=== PATIENT | male | born 1945 | race Caucasian/White ===

== ENCOUNTER 2018-10-17 16:43 | Inpatient (IN) | payer MEDICARE, MEDICAID ==
[2018-10-17 18:45] LABS: CKMB 3.6 ng/mL (0-6.6)
[2018-10-17] MEDS ORDERED: Amiodarone 150 MG/3 ML VIAL ONE (18:57)
[2018-10-17] MEDS ORDERED: hydrALAZINE 20 MG/ML VIAL SLOW IVP PRN (19:37)
[2018-10-17] MEDS ORDERED: [UNRECOGNIZED DRUG - REMARK] FS PRN (20:25)
--- NOTE | 2018-10-17 20:40 | PDOC.FPRHP ---
- History of Present Illness Chief Complaint: syncope History of Present Illness: 72 y/o M, with PMHx of HTN, not on any medications and not under the care of a physician, presents to the ED via EMS transfer from [place]. Pt was shopping at [employer] when he states the next thing he remembered was being lifted up by bystanders after LOC. Pt felt normal before the syncopal event. He denied any CP, SOB, dizziness, Light headedness, or nausea. He denies any recent illness. Pt hit his head when he fell from ground level on syncopal event. Pt had a laceration over left parietal scalp. Pt states that upon awakening he felt "fine." EMS was called, Pt taken to [place] ER and found to have elevated Trops of 0.154--> 0.130 and small intracranial cranial hemorrhage in the L-parietal lobe. Received concha on scalp. CPK: 168, Cr 1.70, K 3.3. EMS reports runs of V-tach in between transfer from [place] to [facility]. Cardiology consulted and started Amiodarone. Neurology consulted, non-operative treatment at this time. - Allergies/Adverse Reactions Allergies Allergy/AdvReac Type Severity Reaction Status Date / Time No Known Allergies Allergy Verified 10/17/18 22:57 - Home Medications Medication Instructions Recorded Confirmed Type No Known 10/17/18 10/17/18 History - History PMHx: HTN, not on any medications or under the care of PCP PSHx: Right eye surgery FHx: no known medical problems Social: lives "off grid," admits to drinking one beer nightly, but told [place] ER he drank 5 beer nightly. Smoked cigars in the past, denies use now. Denies drug use. - Review of Systems ROS unobtainable: due to mental status (Pt alert and oriented, but has tangential thoughts. Redirectable upon questioning. He does not admit to anything but syncope.) General: denies: fever/chills, fatigue Eyes: denies: eye pain ENT: denies: nasal congestion, rhinorrhea Respiratory: denies: cough, congestion, shortness of breath Cardiovascular: denies: chest pain, palpitation, edema Gastrointestinal: denies: nausea, vomiting, diarrhea, constipation, abdominal pain, GI bleeding Genitourinary: denies: incontinence, dysuria, polyuria, discharge Skin: denies: rashes, lesions Musculoskeletal: denies: pain, tenderness Neurological: reports: syncope. denies: numbness, seizure, weakness - Vital signs BP: 161/94 HR: 96 RR: 16 Tmax: 98.6 F Pox: 96% on RA Wt: 74.616 kg - Physical Exam Constitutional: NAD, awake, alert and oriented -Constitutional: poor hygiene HEENT: PERRLA (of left eye. Right eye s/p surgical changes.), no scleral icterus , grossly normal vision (of left eye.), grossly normal hearing, other (dry mucus membranes) -HEENT: poor dentition, multiple caries and missing teeth. Neck: supple, FROM, trachea midline, no LAD, no JVD Chest: no-tender to palpation, no lesions Heart: RRR, normal S1/S2, no murmurs/rubs/gallops, pulses present, no edema Lungs: CTAB, no respiratory distress, good air movement, no rales/rhonchi, no wheezing, no retractions Abdomen: soft, non-tender, bowel sounds present, no masses/distention, no hernias Musculoskeletal: normal structure, normal tone, ROM grossly normal Neurological: no focal deficit, CN II-XII intact, normal sensation, DTRs 2+, other (intact [id number]-hk-[id number], and vrzopz-im-gmpr bilaterally. No clonus or asterixis.) Skin: no jaundice, other (increased skin tenting.) Heme/Lymphatic: no purpura, no petechia Psychiatric: intact recent and remote memory, other (tangential toughts. Inappropriate laughing. Alert and oriented to person, place, time and situation. ) FMR H&P: Results - Labs Lab results: CK-MB (CK-2) 3.6 ng/mL (0-6.6) 10/17/18 17:55 Trops: 0.154--> 0.130 CPK: 168 - EKG Interpretation EKG: Rate 95 bpm, Sinus rhythm QRS 132 ms, ST depressions in aVL, T wave inversion in V3-V6. - Radiology Interpretation CT scan - head Status: report reviewed by me (L-parietal intracranial hemorrhage) FMR H&P: A/P - Problem List (1) Syncope and collapse Current Visit: Yes Status: Acute Code(s): R55 - SYNCOPE AND COLLAPSE (2) Elevated troponin Current Visit: Yes Status: Acute Code(s): R74.8 - ABNORMAL LEVELS OF OTHER SERUM ENZYMES (3) Acute kidney injury Current Visit: Yes Status: Acute Code(s): N17.9 - ACUTE KIDNEY FAILURE, UNSPECIFIED (4) Intracranial hemorrhage following injury Current Visit: Yes Status: Acute Code(s): S06.309A - UNSP FOCAL TBI W LOC OF UNSP DURATION, INIT Qualifiers: Loss of consciousness presence/duration: with LOC of 30 min or less (5) Fall from ground level Current Visit: Yes Status: Acute Code(s): W18.30XA - FALL ON SAME LEVEL, UNSPECIFIED, INITIAL ENCOUNTER (6) Arrhythmia Current Visit: Yes Status: Acute Code(s): I49.9 - CARDIAC ARRHYTHMIA, UNSPECIFIED Qualifiers: Arrhythmia type: ventricular tachycardia Qualified Code(s): I47.2 - Ventricular tachycardia - Plan 72 y/o M, admitted to Stroke inpatient for evaluation and treatment of a syncopal event, with traumatic small intracranial hemorrhage of left parietal lobe, from fall. 1. Syncope - possible caridiogenic in nature; arrhythmia vs NC - Ordered TT Echo - Cardiology consulted - Pt placed on Amiodarone protocol 2. Intracranial Hemorrhage of L-Parietal lobe - 2/2 GLF from syncope - Re-scan tomorrow - Neurology consulted, non-operative at this time - Keep Systolic BP <150, PRN Hydralazine ordered - NPO until speech eval 3. Elevated Troponins - 0.154--> 0.130 down trending - Will trend, follow Cardiology recommendations - Possible stress test candidate 4. Elevated Creatinine, MICK - continue IV hydration - Cr 0.8 in 2018. 5. Elevated BP - Most likely chronic essential HTN - 160-130's/90-80's - PRN hydralazine to keep sys BP <150 6. Hypokalemia - K 3.3 - Pt given banana bag in ED. 7. Hx of Alcohol Abuse - ASE protocol Diet: NPO until speech evaluation DVT PPX: SCD's Code Status: Full Disposition/LOS: Stable, Admit to stroke unit in patient for at least 2 midnights. FMR H&P: Upper Level - Pertinent history 72 year old male who lives off the grid and has never seen a physician presents with witnessed syncope at [facility]. Patient does not recall events leading up to syncope. He has not had a syncopal event previously. Patient endorses history of heavy drinking, although he states he has not had anything to drink in over a week. Patient not a great historian. His "friend" was present during encounter and states that he has become "more confused" over the last year. 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 - Pertinent findings General: Alert and awake HEENT: MMM, Left pupil reactive to light. 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 Hx of retinal detachment. Card: RRR Resp: CTA-BL, no acute respiratory distress Abdomen: Soft, non-tender to palpation Neuro: Strength 5/5 bilateral upper and lower extremities, sensation intact, pronator drift negative Ext: No edema or cyanosis - Plan Date/Time: 10/17/182039 I, Suzanna Bobby, have evaluated this patient and agree with findings/plan as outlined by record label intern resident. Pertinent changes/additions are listed here. 1. Syncope likely secondary to arrhythmia - No prodromal symptoms - VT noted in route by EMS - Cards consulted; appreciate recs - Echo pending - Patient started on amiodarone gtt per cards - Continuous cardiac monitoring 2. Left parietal ICH 2/2 trauma from syncopal episode - Neuro consulted; appreciate recs - BP parameters per neuro (SBP <150) - Q4H neuro checks - NPO for further obs 3. Elevated BP - Likely chronic HTN - Continue to monitor - BP parameters per neurosurgery 4. MICK - Uncertain of baseline - Will continue to monitor - Maintenance IVF - Previous Cr 0.81 in 2018 5. Indeterminate troponins - Trending down - Likely demand 6. Hypokalemia - s/p banana bag - Will check Mg 7. History of alcohol abuse - JONI protocol initiated - Alcohol level neg - Urine drug screen pending 8. Non-compliance/no previous care - Will check HIV/RPR/Hepatitis panel DVT PPX: SCD's Code Status: Full Dispo: Admit to stroke unit. Anticipate LOS >48 hours. Addendum - Attending - Attending Attestation Date/Time: 10/17/18 [id number] I personally evaluated the patient and discussed the management with Dr. Eugene/ Kanu. I agree with the History, Examination, Assessment and Plan documented above with any addition or exceptions noted below. Patient here after episode of LOC earlier today. Reports sudden onset without prodrome, and no apparent postictal state. At outside ER, found to have small trauma related hemorrhage in L parietal lobe associated with scalp trauma. En route he possibly had some runs of Vtach. Patient has no known medical history. Exam consistent with history. Labs show indeterminate trops, downtrended from previous. He is admitted to the stroke unit for frequent Neuro checks and tele monitoring. Will obtain Echo. Continue Amio drip per cardiology recs. Repeat CT scan in AM to evaluate hemorrhage, and will need fairly strict BP goals overnight. Further mgmt per overnight clinical course.
[2018-10-17 21:19] LABS: Troponin I 0.137 ng/mL (< 0.028)
[2018-10-17 23:02] VITALS: BMI 21.1
[2018-10-17 23:05] LABS: Hemoglobin A1c 5.3 % (4.0-6.0)
[2018-10-17 23:37] LABS: Syphilis Antibody Nonreactive (Nonreactive); Syphilis Antibody Index 0.04 S/CO (<1.00 Non-Reactive)
[2018-10-18 00:13] LABS: HBCM Index 0.05 S/CO (0-0.79); HBSAB Concentration 0.55 mIU/mL; HBSAg Index 0.15 S/CO (0-0.99); HIV (1/2) Antibody/Antigen Non-Reactive (NonReactive); HIV 1/2 INDEX 0.09 S/CO (<1.00); Hep B Surf AB Non-Reactive (NonReactive); Hep B Surf Ag Non-Reactive S/CO (NonReactive); Hep C IgG Ab Non-Reactive (NonReactive); Hep C Index 0.05 S/CO (0-0.79); Hepatitis B Core IgM Abs Non-Reactive (NonReactive)
--- NOTE | 2018-10-18 02:14 | CON ---
DATE OF CONSULTATION: This is Jose Guadalupe Allen PA-C dictating a report for Jay Lan MD. This is a 50-minute initial patient evaluation of which greater than 50% of the exam was spent in counseling and coordinating the patient's care. Remainder of the exam was spent in review of medical records and appropriate imaging studies. CHIEF COMPLAINT: Syncopal episode with tiny left occipital contusion. HISTORY OF PRESENT ILLNESS: Mr. Muñoz is a 72-year-old male who presents to [facility] for the above complaints. The patient states that he does not remember the events surrounding his fall, but just remembers his friends attempting to pick him up. He does have a small laceration on the left. The patient is not on blood thinners. Apparently, he has a history of significant alcohol use. He apparently does not use illicit drugs or tobacco. Some of his history is obtained from his previous girlfriend's son. Review of the patient's head CT shows very tiny left occipital region contusion without any mass effect. There is no extension into the falx and there does not appear to be any type of skull fracture. Review of the patient's cervical spine CT is negative for fracture. The patient denies neck pain at this time. In fact, he denies headache or any type of complaint and is rather not happy that he is here at the hospital. I should note he was a transfer from [place]. He has elevated troponin and given the syncope, Medicine and Cardiology will follow along with the patient. PHYSICAL EXAMINATION: The patient is awake, alert, and appropriate. GCS is 15. He is wearing a well-fitting [place] collar. However, he has no tenderness to palpation of the cervical spine and in fact states that he is most bothered by the collar. He has good strength in the bilateral upper and lower extremities. He is able to correctly identify a pen and define its purpose. I should note that he has an old right eye injury. The patient has a significant atrophy into the right eye and apparently had a retinal detachment as a child and lost his vision on the right eye. He has no blurred vision in the left eye and it is round and reactive. He has very poor dentition and is rather disheveled in appearance, which may signify that he is homeless and this is rather confirmed by his friend. IMPRESSION AND DIAGNOSES: 1. Status post syncopal fall with tiny left occipital lobe contusion. 2. Likely alcohol abuse. PLAN: At this time, our medical colleagues will admit the patient and Cardiology will also help follow along and help workup the patient's syncopal episode. From neurosurgical standpoint, this does not require any type of neurosurgical intervention and we will follow up on a repeat head CT in the morning. I would like his systolic blood pressure to remain less than 150. Head of bed elevated at 30 degrees. We will hold on all blood thinners and anticoagulants. Again, we will follow along, but I have let the patient know that he does not require neurosurgical intervention. This is certainly good news. Please call with any changes in patient's neurologic status. Job ID: [id number]
[2018-10-18] MEDS: Amiodarone 450 MG, Admixture Fee 1 EACH in Dextrose 5% in Water 250 ML IVPB SCH ×2 (02:48→17:42)
[2018-10-18 05:53] LABS: Amphetamine Not Detected (NotDetected); Barbiturates Screen Not Detected (NotDetected); Benzodiazepine Screen Not Detected (NotDetected); Cocaine Metabolite Screen Not Detected (NotDetected); Medtox Control Line Valid? VALID (VALID); Medtox Reader # READER 4; Methadone Not Detected (NotDetected); Methamphetamine Not Detected (NotDetected); Opiate Screen Not Detected (NotDetected); Oxycodone Screen Not Detected (NotDetected); Phencyclidine (PCP) Not Detected (NotDetected); THC/Cannabinoid Screen Not Detected (NotDetected); Tricyclic Screen Not Detected (NotDetected)
--- NOTE | 2018-10-18 05:53 | PDOC.FM ---
- Subjective Subjective: Patient was resting well this morning. He states that he only came in to figure out why he passed out. No new complaints overnight. - Objective MAR Reviewed: Yes Vital Signs & Weight: Vital Signs (12 hours) Temp Pulse Resp BP BP Pulse Ox 10/18/18 04:00 98.3 F 72 16 129/77 96 10/18/18 00:00 98.1 F 73 16 136/86 136/86 96 10/17/18 22:00 98.6 F 86 18 138/100 H 138/100 H 95 Weight Weight 74.616 kg Result Diagrams: 10/18/18 05:12 10/18/18 09:05 Phys Exam - Physical Examination Constitutional: NAD HEENT: moist MMs, sclera anicteric Neck: supple, full ROM Respiratory: no wheezing, no rales, no rhonchi, clear to auscultation bilateral Cardiovascular: RRR, no significant murmur, no rub Gastrointestinal: soft, non-tender, no distention, positive bowel sounds Musculoskeletal: no edema, pulses present Neurological: non-focal, moves all 4 limbs Psychiatric: normal affect, A&O x 3 Skin: no rash, normal turgor Dx/Plan - Plan Plan: 72 y/o M, admitted to Stroke inpatient for evaluation and treatment of a syncopal event, with traumatic small intracranial hemorrhage of left parietal lobe, from fall. Syncope DDX: cardiogenic vs neurogenic vs dehydration Ordered TT Echo EMS noted arrhythmia on transfer Cardiology and Neurology consulted Pt placed on Amiodarone protocol Intracranial Hemorrhage of L-Parietal lobe Fell while in [facility], EMS called. Initial CT shows 8mm focal hemorrhagic contusion in the left parietal lobe. Neurology consulted, non-operative at this time Repeat CT scan this am to monitor for progression. Keep Systolic BP <150, elevate head of bed 30degrees, PRN Hydralazine ordered NPO until speech eval Elevated Troponins 0.154 > 0.130 > 0.137 Will follow Cardiology recommendations Possible stress test candidate Elevated Creatinine, MICK Creatinine of 1.70 Continue IV hydration Cr 0.8 in 2018. Elevated BP Most likely chronic essential HTN 160-130's/90-80's PRN hydralazine to keep sys BP <150 Discussed plan of care with him, including the potential that he be prescribed medications to take when he gets home. He specifically said that he will probably not take any medications when he goes home. Hypokalemia K 2.8, given 40meq K+ IV Hx of Alcohol Abuse ASE protocol Diet: HH DVT PPX: SCD's Code Status: Full Addendum - Attending - Attending Attestation Date/Time: 10/18/18 1100 I personally evaluated the patient and discussed the management with Dr. Pabon. I agree with the History, Examination, Assessment and Plan documented above with any addition or exceptions noted below. Echo is pending. Pt remains on amiodarone drip. Pt had repeat head scan this morning to evaluate bleed. Appreciate neurosurgery recs. Cardiology has been consulted. No new vtach overnight.
[2018-10-18 05:55] LABS: #Lymphocytes 1.6 thou/uL (1.20-3.40); #Monocytes 0.6 thou/uL (0.11-0.59); #Neutrophils 6.1 thou/uL (1.40-6.50); %Basophils 0.4 % (0.0-1.0); %Eosinophils 0.2 % (0.0-10.0); %Lymphocytes 19.2 % (21.0-51.0); %Monocytes 7.7 % (0.0-10.0); %Neutrophils 72.5 % (42.0-75.0); Hemoglobin 13.7 g/dL (14.0-18.0); Mean Corpuscular HGB CONC 33.6 g/dL (32.0-36.0); Mean Corpuscular Hemoglobin 30.2 pg (27.0-31.0); Mean Corpuscular Volume 89.9 fL (78.0-98.0); Mean Platelet Volume 9.2 fL (7.4-10.4); Platelet Count 170 thou/uL (130-400); RBC Distribution Width 12.2 % (11.5-14.5); Red Blood Cell (RBC) Count 4.54 mill/uL (4.70-6.10); White Blood Cell (WBC) Count 8.4 thou/uL (4.8-10.8)
[2018-10-18 06:25] LABS: ALT (SGPT) 9 U/L (8-55); AST (SGOT) 17 U/L (5-34); Albumin 3.6 g/dL (3.4-4.8); Alkaline Phosphatase 66 U/L (40-150); Anion Gap 11 mmol/L (10-20); BUN (Urea Nitrogen) 16 mg/dL (8.4-25.7); Bilirubin, Total 1.5 mg/dL (0.2-1.2); Calc. Creatinine Clearance 72 mL/min (70-130); Calcium 8.4 mg/dL (7.8-10.44); Carbon Dioxide 21 mmol/L (23-31); Cardiac Risk 4.4 (Less than 4.5); Chloride 107 mmol/L (98-107); Cholesterol 162 mg/dl (< 200 Desired); Estimated GFR-MDRD 77; Globulin 2.3 g/dL (2.4-3.5); Glucose 106 mg/dL (83-110); HDL Cholesterol 37 mg/dL (>60 Neg Risk); LDL Cholesterol, Calculated 105 mg/dL; Protein, Total 5.9 g/dL (5.8-8.1); Sodium 136 mmol/L (136-145); Triglycerides 100 mg/dL (Less than 150)
[2018-10-18 06:29] LABS: Potassium 2.8 mmol/L (3.5-5.1)
[2018-10-18] MEDS ORDERED: Potassium Chloride 40 MEQ in Sodium Chloride 0.9% 250 ML 250 ML IVPB SCH ×2 (06:45→13:30)
[2018-10-18] MEDS ORDERED: Potassium Chloride 40 MEQ in Premix Bag 1 BAG IVPB SCH (06:45)
--- NOTE | 2018-10-18 08:58 | CT ---
PRELIMINARY REPORT/[facility]/EMERGENCY AFTER HOURS PROCEDURE: EXAM: CT Head Without Contrast EXAM DATE/TIME: 10/18/2018 4:39 AM CLINICAL HISTORY: 72 years old, male; Injury or trauma; Fall; Follow-up exam; Blunt trauma (contusions or hematomas); P atient HX: F/u PT fell while at [facility]. Lt occipital contusion. PT had to have concha to fix lac on head. TECHNIQUE: Imaging protocol: Computed tomography of the head without contrast. COMPARISON: No relevant prior studies available. FINDINGS: Brain: Apparent small 7 x 5 mm hemorrhagic contusion in the high left medial posterior parietal/occip ital cortex, image #26, series 2. This is a known finding from an available prior report 10/17/2018. Eventual comparison with any available prior exams may be helpful. No significant mass effect or midline shift. No other acute intracranial hemorrhage. There is mild decreased attenuation in the periventricular white matter, likely from microvascular di sease. There are old lacunar infarcts in the right basal ganglia region and thalamus. No definite acute infarct by CT. Ventricles: Ventricle size is normal for age. Bones/joints: No definite acute skull fracture. Sinuses: Included paranasal sinuses are essentially clear. Mastoid air cells: No significant acute finding. 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 Soft tissues: Evidence for soft tissue injury/scalp hematoma/laceration in the high left occipital re gion. Vasculature: Vascular calcifications noted in the internal carotid and vertebral basilar systems. IMPRESSION: 1. Small 7 x 5 mm hemorrhagic contusion in the high left posterior parietal/occipital cortex. 2. No significant mass effect or midline shift. 3. 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 4. Other findings discussed above. Thank you for allowing us to participate in the care of your patient. Dictated and Authenticated by: Guillermo Paris MD 10/18/2018 5:45 AM Central Time ([place] & [place]) FINAL REPORT CT BRAIN WITHOUT CONTRAST: COMPARISON: 10/17/2018 FINDINGS/IMPRESSION: I agree with the findings and impression given in the preliminary report per [facility] physician. Small stable left parietal occipital contusion. POS: [facility]
[2018-10-18] MEDS: Lactated Ringer's 1,000 ML IV SCH ×2 (09:55)
--- NOTE | 2018-10-18 10:12 | PRG ---
DATE OF SERVICE: 10/18/2018 Thirty-minute initial visit note on Donny Muñoz, in which 30 minutes were spent reviewing the imaging record, evaluation, examination, and patient formulation of plan. Greater than 50% time was spent in counseling. Mr. Muñoz is admitted following a fall of unknown etiology, but presumably cardiogenic. Review of head CT demonstrates small left occipital pole hemorrhage, stable on repeat head CT. Cervical spine CT is negative. He is neurologically intact. We will arrange a repeat head CT with us in 1 month followup. Job ID: [id number]
[2018-10-18 12:29] LABS: Troponin I 0.188 ng/mL (< 0.028)
[2018-10-18] MEDS ORDERED: Communication Order-Pharmacy FS SCH (13:30)
--- NOTE | 2018-10-18 15:48 | CON ---
DATE OF CONSULTATION: PRIMARY CARE DOCTOR: Unknown. PRIMARY DONOR FLOOR TECHNICIAN: Lenore Pate MD. REASON FOR CARDIOLOGY CONSULT: Elevated troponin and syncopal episode. HISTORY OF PRESENT ILLNESS: Mr. Muñoz is a 72-year-old male with no significant medical history. He has not seen any doctor since over 40-50 years. 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 He reported that he never had dizziness, lightheadedness, or any cardiac complaints prior to this episode. According to the patient medical record, EMS transferred this patient to [facility]. During the transportation, the patient had a run of v tach while the patient was transferred from [place] to [facility]. He is on amiodarone drip at this moment. His telemetry record has not shown any pauses, arrhythmia, or any lethal heart rhythm. The patient denied any chest pain, heaviness, tightness, dizziness, lightheadedness, or any cardiac complaints. He never followed up with cardiologists. He never had a cardiac workup before. MEDICAL HISTORY: None. SURGICAL HISTORY: Right eye surgery. 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 FAMILY HISTORY: No significant cardiovascular related disease in his family. SOCIAL HISTORY: He lives by himself. According to his medical record, he drinks at least 1 beer at night; however, during the cardiology consult interview, he say he quit drinking heavily about 5 years ago and now he drinks 1-2 beers every other week. He smoked cigar, quit about 5 years ago. He denies any illicit drug abuse. ALLERGIES: NO KNOWN DRUG ALLERGIES. MEDICATIONS: He has not taken any medications. REVIEW OF SYSTEMS: A 12-point review of systems negative unless otherwise mentioned in the HPI. PHYSICAL EXAMINATION: VITAL SIGNS: Blood pressure 136/86, temperature 98.1, pulse is 70s to 80s, respiratory rate 16, and O2 saturation 96% with room air. GENERAL: The patient is alert and oriented x4, in no acute distress. HEAD: Normocephalic. There are lacerations on the occipital site, but no active bleeding at this moment. He has a dressing at this site. EYES: His right eye is blind. On the left side, extraocular muscle movement intact. ENT AND MOUTH: Oral and nasal mucosa moist without lesion. NECK: Supple. Normal range of motion. No JVD. RESPIRATORY: Clear to auscultate bilaterally. No wheezing, rales, or rhonchi noted. CARDIOVASCULAR: Regular rate and rhythm. Normal S1 and S2. There was no S3 or S4. No significant murmur, hives, or thrill noted. 2+ pulses in bilateral upper and lower extremities. No edema in the lower extremities. ABDOMEN: Soft and nontender. No mass to palpate. Bowel sounds are present. SKIN: Warm and dry. No lesion, rash, or erythema noted. MUSCULOSKELETAL: The patient able to move all extremities without any difficulties. The patient denied claudication in the lower extremities. PSYCHIATRIC: The patient's mood is appropriate. NEUROLOGIC: The patient is alert and oriented x4. LABORATORY DATA: WBC 8.4, hemoglobin 13.7, hematocrit 40.8, and platelets 140. Sodium 136; potassium 2.8 and 3.0, the patient received another 40 mEq of potassium supplements this morning; BUN is 16; creatinine 0.95. Hemoglobin 5.3. AST 17 and ALT 9. Magnesium 1.9. CK-MB is 3.6 and troponin is 0.154, 0.130, and 0.137. Total cholesterol 162, triglyceride 100, HDL 37, and LDL 105. Brain CT shows a 7 x 5 mm hemorrhagic left occipital hemorrhage, but repeat CT scan showed no difference from previous result. ASSESSMENT AND PLAN: 1. Status post syncopal episode, possible due to neurologic, cardiovascular, or electrophysiologic cause. The patient had echocardiograms done and results are pending at this moment. If the echocardiogram showing normal, the patient might undergo LINQ placement and possible discharge. According to the patient's telemetry record, he has not have any pauses or arrhythmia. The patient is on amiodarone drip at this moment. However, hopefully, we might change to the beta-ean for preventing any arrhythmia in the future arrhythmia episode. 2. Hypokalemia. The patient's primary care doctor already covered the patient's potassium. 3. EtOH abuse. Strongly recommended the patient start EtOH cessation. Thank you very much for allowing Cardiology Service to participate in the care of this patient. We will follow along the patient's care team and make further recommendations as appropriate. Job ID: [id number]
[2018-10-18 17:57] LABS: Troponin I 0.072 ng/mL (< 0.028)
--- NOTE | 2018-10-18 20:01 | CON ---
DATE OF CONSULTATION: 10/18/2018 INDICATION FOR CONSULTATION: A 72-year-old gentleman, with syncopal episode with a small subdural bleed after the fall. This gentleman had no previous cardiac history that he is aware of. He said he did present to the emergency room several years ago with some chest pain, thought he was having a heart attack, but the workup was unremarkable. He was actually at a [employer] place yesterday when he was looking to see the chambers with some equipment. The next thing, he knew he was being picked up off the floor by some of the coworkers and on the ambulance was noted to have some runs of ventricular tachycardia. He has been placed on IV amiodarone and the arrhythmias have seem to have resolved. He denied any chest pain. He has no significant shortness of breath or other complaints. I did notice in his laboratory data, his potassium was decreased when he arrived it was 2.8, is now 3.0 after being given treatment. He did undergo an echocardiogram also today, which shows a severe decrease in left ventricular systolic function, ejection fraction of 20% to 25% with [id number] aortic valve regurgitation. His cardiac enzymes were also indeterminate, first was 0.13, increased up to 0.188. Hemoglobin was 13.7 and creatinine is 0.95. PAST MEDICAL HISTORY: Please refer the notes dictated by the nurse practitioner. SOCIAL HISTORY: Please refer the notes dictated by the nurse practitioner. FAMILY HISTORY: Please refer the notes dictated by the nurse practitioner. REVIEW OF SYSTEMS: Please refer the notes dictated by the nurse practitioner. 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 Otherwise, he has had no significant complaints on review of systems. He denies any tobacco abuse, but did smoke in the past, but stopped several years ago. Previously, he smoked cigars. He said he stopped drinking beer sometime back, but in the past did drink relatively heavily and also smoked marijuana, but this stopped several years ago. ALLERGIES: NONE. MEDICATIONS: Prior to admission were also none. PHYSICAL EXAMINATION: GENERAL: Reveals a somewhat unkempt elderly gentleman. VITAL SIGNS: Blood pressure is 127/87, heart rate is 74 and regular, respiratory rate 17, and he is afebrile. HEENT: Shows head to be normocephalic. He does have a bandage on the posterior parietal area, where he has some laceration there and hematoma. Carotid pulses are present without bruits. CHEST: Clear to auscultation without rales, rhonchi, or wheezing. CARDIOVASCULAR: Reveals a regular rate and rhythm. He has a 2/3 diastolic murmur in the aortic area, also has soft systolic murmur of the aortic area as well as a soft systolic murmur 2/3 at the apex. ABDOMEN: Soft and nontender. Positive bowel sounds are present. No organomegaly or masses noted. Femoral pulses are present. EXTREMITIES: Show no clubbing, cyanosis, or edema. Pedal pulses are present. Radial pulses are present. NEUROLOGIC: The patient appears to be intact at this time. LABORATORY DATA: His laboratory data as noted above. EKG shows normal sinus rhythm with nonspecific EKG changes. T-wave inversion in the lateral leads which could be compatible with ischemia versus left ventricular hypertrophy. Echocardiogram showed as above the ejection fraction with global hypokinesis of 20% to 25%. IMPRESSION AND PLAN: Cardiomyopathy with global hypokinesis. Ejection fraction 20% to 25% in the patient, who underwent syncopal episode and had episodes of documented nonsustained ventricular tachycardia. At this time, I would suggest the patient to undergo a cardiac catheterization for evaluation of coronary artery status to determine whether or not this may have been ischemic event associated with coronary artery disease. If there is no coronary artery disease noted, then he will need to undergo electrophysiological study to determine whether or not his ventricular tachycardia can be reproduced and that fact he most likely will need to undergo an AICD implant. At the minimum, he will need to undergo a LINQ implant to determine exactly what arrhythmias he may be having. Should he have severe coronary artery disease, he will need to undergo further intervention most likely. As far as his other medical conditions and for his history of tobacco abuse, this will be dealt with by the primary care service. We will be more than happy to continue to follow this patient with you and further recommendations will depend on the results of the cardiac catheterization. Job ID: [id number]
[2018-10-19 05:24] LABS: Anion Gap 10 mmol/L (10-20); BUN (Urea Nitrogen) 15 mg/dL (8.4-25.7); Calc. Creatinine Clearance 81 mL/min (70-130); Calcium 8.3 mg/dL (7.8-10.44); Carbon Dioxide 22 mmol/L (23-31); Chloride 107 mmol/L (98-107); Estimated GFR-MDRD 89; Glucose 100 mg/dL (83-110); Potassium 3.3 mmol/L (3.5-5.1); Sodium 136 mmol/L (136-145)
--- NOTE | 2018-10-19 05:28 | PDOC.FM ---
- Subjective Subjective: Mr. Muñoz was resting comfortably this morning. No new complaints. - Objective MAR Reviewed: Yes Vital Signs & Weight: Vital Signs (12 hours) Temp Pulse Resp BP BP BP Pulse Ox 10/19/18 04:00 97.4 F L 68 18 116/71 96 10/19/18 00:00 98.6 F 79 16 126/88 126/88 95 10/18/18 20:00 99.6 F 84 16 147/107 H 147/107 H 96 Weight Weight 74.616 kg I&O: 10/17/18 10/18/18 10/19/18 06:59 06:59 06:59 Intake Total 1080 Balance 1080 Result Diagrams: 10/18/18 05:12 10/19/18 04:44 Phys Exam - Physical Examination Constitutional: NAD HEENT: moist MMs, sclera anicteric blind right eye Neck: no nodes, supple, full ROM Respiratory: no wheezing, no rales, no rhonchi, clear to auscultation bilateral Cardiovascular: RRR, no significant murmur, no rub Gastrointestinal: soft, non-tender, no distention, positive bowel sounds Musculoskeletal: no edema, pulses present Neurological: non-focal, moves all 4 limbs Psychiatric: normal affect, A&O x 3 Skin: no rash, cap refill <2 seconds Dx/Plan - Plan Plan: 72 y/o M, admitted to Stroke inpatient for evaluation and treatment of a syncopal event, with traumatic small intracranial hemorrhage of left parietal lobe, from fall. Syncope DDX: cardiogenic vs neurogenic vs dehydration EMS noted arrhythmia on transfer Cardiology and Neurosurg consulted Pt placed on Amiodarone protocol Abnormal Echocardiogram Global hypokinesis. EF 20-25%. Dilated LV and LA. Aortic regurgitation (mild-mod ). Cardiology recommends cardiac catheterization, with the potential need for EP study and AICD placement. Patient undergoing cath this am. Hypokalemia K 3.3, will give 40meq PO this am after procedure. Elevated BP, Resolved Elevated Creatinine, MICK Creatinine of 0.84, back to baseline D/tree IV fluids Elevated Troponins, downtrending 0.154 > 0.130 > 0.137 > 0.072 Will follow Cardiology recommendations Intracranial Hemorrhage of L-Parietal lobe Fell while in [facility], EMS called. Initial CT shows 8mm focal hemorrhagic contusion in the left parietal lobe. Neurology consulted, non-operative at this time Repeat CT was reassuring. Neurosurgery recommends repeat scan in 1 month. Hx of Alcohol Abuse ASE protocol Diet: HH DVT PPX: SCD's Code Status: Full Addendum - Attending - Attending Attestation Date/Time: 10/19/18 1231 I personally evaluated the patient and discussed the management with Dr. Pabon. I agree with the History, Examination, Assessment and Plan documented above with any addition or exceptions noted below. The patient has gone for cath this morning. REport is pending. Per staff, he may need cardiac surgery. Will f/u with cardiology recs. Pt has newly diagnosed systolic chf.
[2018-10-19] MEDS ORDERED: Heparin 10,000 UNITS/1 ML VIAL ONE (08:40)
[2018-10-19] MEDS ORDERED: Verapamil 5 MG/2 ML VIAL ONE (08:40)
[2018-10-19] MEDS ORDERED: Nitroglycerin 100MG/250ML BOT 250 ML ONE (08:40)
[2018-10-19] MEDS ORDERED: Lidocaine 1% (PF) 30 ML VIAL ONE (09:07)
[2018-10-19] MEDS: Amiodarone 450 MG, Admixture Fee 1 EACH in Dextrose 5% in Water 250 ML IVPB SCH (10:22)
[2018-10-19] MEDS ORDERED: Sodium Chloride 0.9% 200 ML IV PRN (10:55)
[2018-10-19] MEDS ORDERED: Acetaminophen/Codeine 30-300mg Tablet PO PRN ×2 (10:55)
[2018-10-19] MEDS ORDERED: Nitroglycerin 0.4 MG TAB (25 Tab Bottle) SL PRN (10:55)
[2018-10-19] MEDS ORDERED: Potassium Chloride 20 MEQ TAB PO SCH (12:00)
[2018-10-19] MEDS ORDERED: Iopamidol 370 76% 100 ML VIAL ONE (17:05)
[2018-10-19] MEDS ORDERED: Amiodarone In Dextrose 200 ML IVPB SCH (22:00)
--- NOTE | 2018-10-20 02:14 | CON ---
DATE OF CONSULTATION: 10/19/2018 REASON FOR CONSULTATION: Evaluate patient with severe coronary artery disease and congestive heart failure. HISTORY OF PRESENT ILLNESS: Mr. Muñoz [place] the [employer] [place] when he passed out. He was brought to the emergency department in [place] and found to have ventricular tachycardia and bursts on transport. He was started on amiodarone drip and transported here. Of note, he is found to have on CT of his head a small parietal/occipital bleed. As part of his workup, he underwent echocardiogram revealing ejection fraction of 20% to 25% with no significant valvular disease. He was taken for cardiac catheterization today which shows severe 3-vessel disease. The patient has no previous medical history and has not ever had any cardiac issues. He [facility] [place] and in a house that he says belongs to his girlfriend in [place]. She has provided a place for him to stay on numerous occasions. He does not currently take any medications at home. PAST MEDICAL HISTORY: None. PAST SURGICAL HISTORY: Right eye surgery for detached retina at the [facility]. CURRENT MEDICATIONS: At home, none. ALLERGIES: NONE. SOCIAL HISTORY: He is fairly disheveled appearing. He does not use tobacco. He does drink on a daily basis. REVIEW OF SYSTEMS: 10-point review of systems is performed and negative except as above. PHYSICAL EXAMINATION: GENERAL: This is a disheveled-appearing, thin gentleman, eating dinner with no complaint. VITAL SIGNS: Temperature is 98.6, pulse is 79 and regular, blood pressure is 136/97, height 6 feet 2 inches, weight is 165 pounds, BSA is 1.98. HEENT: Sclerae nonicteric. Pupils equal bilaterally. NECK: Supple without bruit. CHEST: Clear bilaterally. HEART: Rhythm is regular. ABDOMEN: Soft and nontender. EXTREMITIES: No edema. VASCULAR: Palpable carotid, radial, femoral, dorsalis pedis pulses bilaterally. LABORATORY DATA: Of note, his hemoglobin is 13.7, platelet count is 170,000. Creatinine is 0.84, potassium is 3.3. ASSESSMENT AND PLAN: Mr. Muñoz is an unfortunate 72-year-old gentleman, who has had no previous medical care. He presents with congestive heart failure, ejection fraction of 20% to 25% and 3-vessel disease. He has also had some ventricular arrhythmias, which have been controlled with amiodarone. He sustained an intracranial bleed at the time of his fall. He needs to be treated for his congestive heart failure and rhythm disturbance. Revascularization acutely is not in my opinion warranted and we would like to see how he does on some medications for a month or so and see him back in the office and see if we can plan for revascularization at that point. He will also need to be cleared by Dr. Lan for full anticoagulation if we are to undertake coronary bypass grafting. Job ID: [id number]
--- NOTE | 2018-10-20 05:31 | PDOC.FM ---
- Subjective Subjective: Mr. Muñoz was sleeping well this morning. His understanding from the CV surgeon / Lead Care Manager was that he will do medical management for a month and reevaluate his cardiac function. He was curious when he would be going home. - Objective MAR Reviewed: Yes Vital Signs & Weight: Vital Signs (12 hours) Temp Pulse Resp BP BP Pulse Ox 10/20/18 04:00 98.1 F 67 16 124/88 124/88 97 10/20/18 00:00 115/64 10/19/18 23:41 98.1 F 68 16 115/64 97 10/19/18 20:00 98.6 F 78 16 136/90 136/90 98 10/19/18 17:37 79 18 136/97 H 97 Weight Weight 75.251 kg I&O: 10/18/18 10/19/18 10/20/18 06:59 06:59 06:59 Intake Total 2009 320.4 Output Total 900 500 Balance 1110 -179.6 Result Diagrams: 10/18/18 05:12 10/20/18 06:08 Phys Exam - Physical Examination Constitutional: NAD HEENT: moist MMs, sclera anicteric Neck: supple, full ROM Respiratory: no wheezing, no rales, no rhonchi, clear to auscultation bilateral Cardiovascular: RRR, no significant murmur, no rub Gastrointestinal: soft, non-tender, no distention, positive bowel sounds Musculoskeletal: no edema, pulses present Neurological: non-focal, normal sensation, moves all 4 limbs Psychiatric: normal affect, A&O x 3 Skin: no rash, normal turgor Dx/Plan - Plan Plan: 72 y/o M, admitted to Stroke inpatient for evaluation and treatment of a syncopal event, with traumatic small intracranial hemorrhage of left parietal lobe, from fall. Syncope, likely cardiac in origin DDX: cardiogenic vs neurogenic vs dehydration EMS noted arrhythmia on transfer Cardiology and Neurosurg consulted Pt placed on Amiodarone protocol Abnormal Echocardiogram Global hypokinesis. EF 20-25%. Dilated LV and LA. Aortic regurgitation (mild-mod ). Cardiology recommends cardiac catheterization, with the potential need for EP study and AICD placement. Cath (10/18), report pending. Hypokalemia Recheck w/ BMP this morning. Elevated BP, Resolved Elevated Creatinine, MICK, resolved Elevated Troponins, resolved Intracranial Hemorrhage of L-Parietal lobe Repeat CT was reassuring. Neurosurgery recommends repeat scan in 1 month. Hx of Alcohol Abuse ASE protocol Diet: HH DVT PPX: SCD's Code Status: Full Addendum - Attending - Attending Attestation Date/Time: 10/20/181924 I personally evaluated the patient and discussed the management with Dr. Pabon. I agree with the History, Examination, Assessment and Plan documented above with any addition or exceptions noted below. The patient has been seen by cv surgery who recommends medical management in the next month. Will add beta ean and maite inhibitor. F/u with cardiology recs for amiodarone drip. Will need life vest.
[2018-10-20 06:37] LABS: Anion Gap 10 mmol/L (10-20); BUN (Urea Nitrogen) 10 mg/dL (8.4-25.7); Calc. Creatinine Clearance 88 mL/min (70-130); Calcium 8.4 mg/dL (7.8-10.44); Carbon Dioxide 22 mmol/L (23-31); Chloride 107 mmol/L (98-107); Estimated GFR-MDRD Greater than 90; Glucose 101 mg/dL (83-110); Potassium 3.9 mmol/L (3.5-5.1); Sodium 135 mmol/L (136-145)
[2018-10-20] MEDS ORDERED: Amiodarone In Dextrose 200 ML IVPB SCH (09:57)
--- NOTE | 2018-10-20 10:00 | PDOC.CPN ---
- Subjective Date: 10/20/18 Time: 10:10 Interval history: The pt seen and examined. No overnight events. No cardiac complaints. - Objective Allergies/Adverse Reactions: Allergies Allergy/AdvReac Type Severity Reaction Status Date / Time No Known Allergies Allergy Verified 10/17/18 22:57 Visit Medications: Current Medications Acetaminophen/Codeine Phosphate (Tylenol #3) 1 tab PO Q4H PRN PRN Reason: Mild Pain (1-3) Acetaminophen/Codeine Phosphate (Tylenol #3) 2 tab PO Q4H PRN PRN Reason: Moderate Pain (4-6) Amiodarone HCl (Cordarone) 400 mg PO BID ABDIRASHID Amiodarone HCl (Cordarone) 200 mg PO TID ABDIRASHID Amiodarone HCl (Cordarone) 200 mg PO BID ABDIRASHID Amiodarone HCl (Cordarone) 200 mg PO DAILY ABDIRASHID Carvedilol (Coreg) 3.125 mg PO BID-[facility] Hydralazine HCl (Apresoline) 10 mg SLOW IVP Q15MIN PRN PRN Reason: Blood Pressure Amiodarone HCl/Dextrose (Nexterone) 200 mls @ 0 mls/hr IVPB INF ABDIRASHID; Protocol Miscellaneous Information (Communication Order-Pharmacy) 1 each FS PRN PRN PRN Reason: . Nitroglycerin (Nitrostat) 0.4 mg SL Q5MIN PRN PRN Reason: Chest Pain Sodium Chloride (Flush - Normal Saline) 10 ml IVF PRN PRN PRN Reason: Saline Flush Vital Signs & Weight: Vital Signs Temp Pulse Resp BP BP Pulse Ox 10/20/18 07:46 97.9 F 77 16 145/97 H 95 10/20/18 04:00 98.1 F 67 16 124/88 124/88 97 10/20/18 00:00 115/64 10/19/18 23:41 98.1 F 68 16 115/64 97 Weight 165 lb 14.4 oz - Physical Exam HEENT: mucus membranes moist Neck: supple neck Cardiac: regular rate and rhythm, S1/S2 Lungs: clear to auscultation Skin: clear Musculoskeletal: normal range of motion - Labs Result Diagrams: 10/18/18 05:12 10/20/18 06:08 Troponin/CKMB CK-MB (CK-2) 3.6 ng/mL (0-6.6) 10/17/18 17:55 Troponin I 0.072 ng/mL (< 0.028) H 10/18/18 17:20 - Telemetry Sinus rhythms and dysrhythmias: sinus rhythm - Assessment/Plan Assessment/Plan: 1. Severe Diffuse CAD with s/p LHC on 10/19/2018 with 100% occuled in RCA and Lt Cx, distal RCA is filled from Left system, 90% stenosis in LAD; Medical tx only at this time. Re-evaluate in 1 month.; will start ASA 81mg qd, Coreg 3.125mg BID and Lisinopril 2.5mg qd; 2. S/p Cardiac arrhythmia - remains in SR with Amiodarone drip, which will be changed to Amiodarone PO 400mg BID for 2 wks (form 10/20/2018), 200mg TID for 2 wks, 200mg BID for 2 wks, then change to 200mg qd s/p Syncope episode - likely cardiac in origin 3. Ischemic CMY - will d/tree home with LifeVest 4. Chronic Systolic HF - will start Coreg and Lisinopril; may start diuretic if necessary 5. Hx of Alcohol Abuse - ETOH cessation education given to the pt. PADMINI reviewed * Echo on 10/18/2018 with EF 20-25%, mild dilated LA, mild ERA, mild MR, mild- mod AR, and mild TR and MI * s/p LHC on 10/19/2018 with 100% occuled in RCA and Lt Cx, distal RCA is filled from Left system, 90% stenosis in LAD; Medical tx only at this time. Consider entresto. Pt. seen and eval. by me. I agree with the A/P by the BRANCH OFFICE ADMINISTRATOR.See notes from CT surgery. Medical treatment for now.Chest clear. RRR. Pt. likely had V-tach and syncope.
[2018-10-20] MEDS ORDERED: Aspirin 81 mg Enteric Coated Tablet PO SCH (10:15)
[2018-10-20] MEDS ORDERED: Amiodarone 200 MG TAB PO SCH (11:15)
[2018-10-20] MEDS ORDERED: Carvedilol 3.125 MG TAB PO SCH ×2 (11:30→17:00)
[2018-10-20] MEDS ORDERED: Lisinopril 2.5 MG TAB PO SCH (11:30)
[2018-10-20] MEDS: Carvedilol 3.125 MG TAB PO SCH (16:35)
[2018-10-20] MEDS: Amiodarone 200 MG TAB PO SCH (20:27)
[2018-10-20] MEDS ORDERED: Atorvastatin Calcium 40 MG TAB PO SCH (21:00)
--- NOTE | 2018-10-21 05:13 | PDOC.FM ---
- Subjective Subjective: Patient states he slept well. Denies any complaints this morning. He states he has read the info about life vest and wants to be able to obtain one to take home. If discharged he says he has friend "Laura" who can come pick him up and he will be staying in a room at her house. - Objective Vital Signs & Weight: Vital Signs (12 hours) Temp Pulse Resp BP BP Pulse Ox 10/21/18 04:00 112/72 10/21/18 03:56 98.6 F 68 16 112/72 97 10/21/18 00:00 98.5 F 70 16 114/74 114/74 95 10/20/18 20:00 98.1 F 70 16 118/77 118/77 97 Weight Weight 74.888 kg I&O: 10/19/18 10/20/18 10/21/18 06:59 06:59 06:59 Intake Total 2009 320.4 840 Output Total 900 500 750 Balance 1110 -179.6 90 Result Diagrams: 10/18/18 05:12 10/21/18 07:49 Phys Exam - Physical Examination Constitutional: NAD HEENT: PERRLA, moist MMs Neck: no JVD, supple, full ROM Respiratory: no wheezing, no rhonchi, clear to auscultation bilateral Cardiovascular: RRR, no significant murmur Gastrointestinal: soft, non-tender, no distention, positive bowel sounds Musculoskeletal: no edema, pulses present Neurological: normal sensation, moves all 4 limbs Psychiatric: normal affect, A&O x 3 Skin: no rash, normal turgor Dx/Plan (1) Elevated troponin Code(s): R74.8 - ABNORMAL LEVELS OF OTHER SERUM ENZYMES Status: Acute (2) Fall from ground level Code(s): W18.30XA - FALL ON SAME LEVEL, UNSPECIFIED, INITIAL ENCOUNTER Status : Acute (3) Intracranial hemorrhage following injury Code(s): S06.309A - UNSP FOCAL TBI W LOC OF UNSP DURATION, INIT Status: Acute Qualifiers: Loss of consciousness presence/duration: with LOC of 30 min or less (4) Syncope and collapse Code(s): R55 - SYNCOPE AND COLLAPSE Status: Acute - Plan Plan: 72 y/o M, admitted to Stroke inpatient for evaluation and treatment of a syncopal event, with traumatic small intracranial hemorrhage of left parietal lobe, from fall: #Syncope, likely cardiac in origin -DDX: cardiogenic vs neurogenic vs dehydration -EMS noted arrhythmia on transfer -Cardiology and Neurosurg consulted, appreciate recs -Pt placed on Amiodarone protocol--transitioned to PO Amiodarone on 10/20/18 @2100 -Cardio restarted on 10/20/18: ASA 81 mg, Coreg 3.125mg BID, and Lisinopril 2.5 mg #Abnormal Echocardiogram -Global hypokinesis. EF 20-25%. Dilated LV and LA. Aortic regurgitation (mild- mod). -Cardiology recommends cardiac catheterization, with the potential need for EP study and AICD placement. -Cath (10/18), report states high risk CABG vs medical management, Cardio recs state patient will undergo medical mgmt for 1 month then reassess #Hypokalemia, resolved -Recheck w/ BMP this morning #Elevated BP, Resolved #Elevated Creatinine, MICK, resolved #Elevated Troponins, resolved #Intracranial Hemorrhage of L-Parietal lobe -Repeat CT was reassuring. -Neurosurgery recommends repeat CT head in 1 month, f/u with [facility] outpatient in 1 month #Hx of Alcohol Abuse -ASE protocol Diet: HH DVT PPX: SCD's Code Status: Full Dispo: Stable with anticipated discharge after complete 24hrs of PO Amiodarone and Life Vest obtained to take home. Addendum - Attending - Attending Attestation Date/Time: 10/21/18 6565 I personally evaluated the patient and discussed the management with Dr. Marte. I agree with the History, Examination, Assessment and Plan documented above with any addition or exceptions noted below. The patient's heart rate is stable on po amiodarone. He is getting his lifevest today. Will d/c home.
[2018-10-21] MEDS: Amiodarone 200 MG TAB PO SCH (08:22)
[2018-10-21] MEDS: Carvedilol 3.125 MG TAB PO SCH ×2 (08:22→17:32)
[2018-10-21 08:31] LABS: Anion Gap 10 mmol/L (10-20); BUN (Urea Nitrogen) 13 mg/dL (8.4-25.7); Calc. Creatinine Clearance 83 mL/min (70-130); Calcium 8.8 mg/dL (7.8-10.44); Carbon Dioxide 25 mmol/L (23-31); Chloride 106 mmol/L (98-107); Estimated GFR-MDRD Greater than 90; Glucose 101 mg/dL (83-110); Potassium 3.9 mmol/L (3.5-5.1); Sodium 137 mmol/L (136-145)
[2018-10-21] MEDS ORDERED: Lisinopril 2.5 MG TAB PO SCH (09:00)
[2018-10-21 15:39] VITALS: BP 112/69; TEMP 98.1
--- NOTE | 2018-10-24 10:29 | DIS ---
DATE OF ADMISSION: 10/17/2018 DATE OF DISCHARGE: 10/21/2018 RESIDENT: Maty Pabon MD ADMITTING ATTENDING: Jay Moon MD. CONSULT: Cardiology, Dr. Herman. CV Surgery, Dr. Pate. Neurosurgery, Dr. Lan. PROCEDURES: Left heart catheterization. PRIMARY DIAGNOSIS: Syncope. SECONDARY DIAGNOSES: Intracranial hemorrhage of left parietal lobe, elevated troponin, acute kidney injury, hypertension, coronary artery disease, chronic systolic heart failure. DISCHARGE MEDICATIONS: 1. Amiodarone 400 mg b.i.d. for 14 days, then 200 mg t.i.d. for 14 days, then 200 mg b.i.d. for 14 days, then 200 mg daily. 2. Atorvastatin 40 mg. 3. Carvedilol 3.125 mg b.i.d. 4. Lisinopril 5 mg daily. 5. Nitrostat 0.4 mg p.r.n. DISCONTINUED MEDICATIONS: None. HISTORY OF PRESENT ILLNESS: Mr. Muñoz is a 72-year-old male with past medical history of hypertension who does not currently take any medications or see a doctor on a daily basis who presented to the emergency department via EMS after falling in [employer]. He states that he did not remember feeling dizzy or weak before hand, he just woke up on the floor being lifted by bystanders. He denies any chest pain, shortness of breath, dizziness, lightheadedness, or nausea. He denies any acute illnesses. He denies any prior episodes like this. After awakening, he felt fine: however, EMS was called and the patient was taken to [facility], where he was found to have elevated troponin and a small intracranial hemorrhage on CT scan. His scalp was stapled and he was transferred to [place]. Neurology was consulted due to the CT scan and stated that the intracranial hemorrhage was nonoperative at this time, ordered a repeat CT scan which showed stable changes. Cardiology was consulted due to a period of time during transfer via EMS, where he was noted to be in ventricular tachycardia. Once he arrived at [place], he was placed on telemetry and started on amiodarone, had another episode of ventricular tachycardia while on telemetry monitoring. Cardiology recommended getting a heart catheterization and an echo. Echo showed global hypokinesis and ejection fraction of 20% to 25%. The heart catheterization showed 100% occlusion in the right circumflex artery and left circumflex, distal and filled from left system, 90% stenosis in left anterior descending artery. possible surgical intervention follow up with Cardiology. DISPOSITION: Stable. DISCHARGE INSTRUCTIONS: 1. Location: Home. 2. Diet: Heart healthy. 3. Activity: Ad jocelyne. 4. Follow up with him in one month with CV Surgery/Cardiology. Job ID: [id number]
[2018-11-03] MEDS ORDERED: Amiodarone 200 MG TAB PO SCH (09:00)
[2018-11-17] MEDS ORDERED: Amiodarone 200 MG TAB PO SCH (09:00)
[2018-12-01] MEDS ORDERED: Amiodarone 200 MG TAB PO SCH (09:00)
== END 2018-10-21 18:57 | disposition home or self-care (01) | DRG 86 ==
LOC: ERS 16:43 → 2SE 20:09
PROVIDERS: ADMIT Student in an Organized Health Care Education/Training Program; ATTEND Student in an Organized Health Care Education/Training Program
PROC: 4A023N7 Measurement of Cardiac Sampling and Pressure, Left Heart, Percutaneous Approach (ICD-10-PCS; principal; 2018-10-19)
PROC: B2111ZZ Fluoroscopy of Multiple Coronary Arteries using Low Osmolar Contrast (ICD-10-PCS; 2018-10-19)
PROC: B2151ZZ Fluoroscopy of Left Heart using Low Osmolar Contrast (ICD-10-PCS; 2018-10-19)
DX: S06.5X1A Traumatic subdural hemorrhage with loss of consciousness of 30 minutes or less, initial encounter (principal); N17.9 Acute kidney failure, unspecified; I47.2 Ventricular tachycardia; I50.22 Chronic systolic (congestive) heart failure; E87.6 Hypokalemia; F10.10 Alcohol abuse, uncomplicated; I25.10 Atherosclerotic heart disease of native coronary artery without angina pectoris; I25.5 Ischemic cardiomyopathy; I49.9 Cardiac arrhythmia, unspecified; I11.0 Hypertensive heart disease with heart failure; W18.30XA Fall on same level, unspecified, initial encounter; Y93.9 Activity, unspecified
CPT/HCPCS: 36415; 70450; 80048; 80053; 80061; 80306; 82553; 83036; 83735; 84484; 85025; 86705; 86706; 86780; 86803; 87340; 87389; 93306; 93458; 96365; 96376; C1769; J0282; J1644; J2001; J3480; J7050; J7070; Q9967

== ENCOUNTER 2018-11-17 05:56 | Inpatient (IN) | payer MEDICARE, MEDICAID ==
[2018-11-17] MEDS ORDERED: Fentanyl 250 MCG/5 ML VIAL ONE (06:21)
[2018-11-17] MEDS ORDERED: Nitroglycerin 50 MG/250 ML BOT 250 ML ONE (06:21)
[2018-11-17] MEDS ORDERED: Norepinephrine 4 MG/4 ML VIAL ONE (06:21)
[2018-11-17] MEDS ORDERED: Dexamethasone 4 mg/ml Vial ONE (06:29)
[2018-11-17] MEDS ORDERED: Bupivacaine HCl 0.5%/Epinephrine 1:200,000/PF 30 ml Vial ONE (06:29)
[2018-11-17] MEDS ORDERED: Albumin 5% 500 ML ONE (06:29)
[2018-11-17] MEDS ORDERED: Heparin 10,000 UNITS/1 ML VIAL 30,000 UNITS in Sodium Chloride 0.9% 1,000 ML FS SCH (06:45)
[2018-11-17 06:48] LABS: #Basophils 0.1 thou/uL (0.0-0.2); #Eosinphils 0.3 thou/uL (0.0-0.7); #Lymphocytes 1.1 thou/uL (1.20-3.40); #Monocytes 0.5 thou/uL (0.11-0.59); %Eosinophils 3.3 % (0.0-10.0); %Lymphocytes 14.3 % (21.0-51.0); %Monocytes 6.4 % (0.0-10.0); Hemoglobin 15.1 g/dL (14.0-18.0); Mean Corpuscular HGB CONC 32.9 g/dL (32.0-36.0); Mean Corpuscular Hemoglobin 31.3 pg (27.0-31.0); Mean Platelet Volume 9.7 fL (7.4-10.4); Platelet Count 142 thou/uL (130-400); RBC Distribution Width 12.8 % (11.5-14.5); Red Blood Cell (RBC) Count 4.84 mill/uL (4.70-6.10)
[2018-11-17] MEDS ORDERED: Midazolam HCl 2 mg/2 ml Vial ONE (07:21)
[2018-11-17] MEDS ORDERED: Ketamine 50 MG/ML (10ML VIAL) ONE (07:21)
[2018-11-17] MEDS ORDERED: Phenylephrine HCL 10 MG/ML VIAL ONE (10:18)
[2018-11-17] MEDS ORDERED: Lidocaine 2% PF 100 mg/5 ml Syringe ONE ×2 (11:10→11:33)
[2018-11-17] MEDS ORDERED: Vecuronium 10 MG VIAL ONE (11:33)
[2018-11-17] MEDS ORDERED: Rocuronium Bromide 10 MG/ML (10ML VIAL) ONE (11:33)
[2018-11-17] MEDS ORDERED: Mannitol 12.5 GM/50 ML ONE (11:33)
[2018-11-17] MEDS ORDERED: PROPOFOL 200 MG/20 ML VIAL ONE (11:33)
[2018-11-17] MEDS ORDERED: Papaverine 60 MG/2 ML VIAL ONE (11:33)
[2018-11-17] MEDS ORDERED: Succinylcholine Chloride 20 MG/ML 10 ml SYRINGE FS ONE (11:33)
[2018-11-17] MEDS ORDERED: Calcium Chloride 1 GM/10 ML Abboject SYRINGE ONE (11:33)
[2018-11-17] MEDS ORDERED: Protamine Sulfate 250 MG/25 ML VIAL ONE (11:33)
[2018-11-17] MEDS ORDERED: Thrombin 5000 UNITS/5 ML VIAL ONE (11:33)
[2018-11-17] MEDS ORDERED: Aminocaproic Acid 5 GM/20 ML VIAL ONE (11:33)
[2018-11-17] MEDS ORDERED: Cardioplegic Soln 1,000 ML BAG ONE (11:33)
[2018-11-17] MEDS ORDERED: Nitroglycerin 50 MG/250 ML BOT ONE (11:33)
[2018-11-17] MEDS ORDERED: Magnesium 5 GM/10 ML VIAL ONE (11:33)
[2018-11-17] MEDS ORDERED: Heparin 30,000 units/30 ml VIAL ONE (11:33)
[2018-11-17] MEDS ORDERED: Potassium Chloride 60 MEQ/30 ML VIAL ONE (11:33)
[2018-11-17] MEDS ORDERED: Sodium Bicarb 50 MEQ/50 ML VIAL ONE (11:33)
[2018-11-17] MEDS ORDERED: Heparin 5,000 UNITS/ML VIAL ONE (11:33)
[2018-11-17] MEDS ORDERED: Albumin 5% 250 ML ONE ×2 (12:05→13:05)
[2018-11-17 13:06] LABS: Actual Bicarbonate (HCO3a) 20.2 mEq/L (22-28); Base Excess (BEa) -4.8 mEq/L (-2.0 to +3.0); CO2 Tension 37.1 mmHg (35.0-45.0); Calcium, Ionized 1.12 mmol/L (1.12-1.30); Carboxyhemoglobin (COHb) 0.4 gm% (0.0-3.0); Hemoglobin (Hb) 11.4 g/dL (14.0-18.0); O2 Tension (PaO2) 137.7 mmHg (> 70.0); Potassium - ABG Lab 4.89 mmol/L (3.70-5.30); pH, Arterial 7.35 (7.35-7.45)
[2018-11-17 13:08] LABS: Puncture Site ALINE
[2018-11-17 13:09] LABS: ALV-art Gradient 172.425 (0-20)
[2018-11-17] MEDS ORDERED: Dextrose 5% in Water 1,000 ML IV PRN (13:28)
[2018-11-17] MEDS ORDERED: Dextrose 50% Abboject 50 ML SYRINGE SLOW IVP PRN (13:28)
[2018-11-17] MEDS ORDERED: Hetastarch 6% 500 ML 500 ML IVPB PRN (13:30)
[2018-11-17] MEDS ORDERED: Magnesium 2 GM/50 ML 2 GM in Premix Bag 1 BAG IVPB SCH (13:30)
[2018-11-17] MEDS ORDERED: Fentanyl 100 MCG/2 ML VIAL SLOW IVP PRN ×2 (13:30)
[2018-11-17] MEDS ORDERED: Promethazine HCl 25 MG/ML VIAL IM PRN (13:30)
[2018-11-17] MEDS ORDERED: Acetaminophen 325 MG TAB PO PRN (13:30)
[2018-11-17] MEDS ORDERED: Potassium Chloride 20 MEQ/100 ML PREMIX BAG IVPB PRN (13:30)
[2018-11-17] MEDS ORDERED: Mag-Al 1200 mg/1200 mg/30 ML UDCUP PO PRN (13:30)
[2018-11-17] MEDS ORDERED: Nitroglycerin 50 MG/250 ML BOT 250 ML IVPB PRN (13:30)
[2018-11-17] MEDS ORDERED: Guaifenesin DM 100-10/5 ML UDCUP PO PRN (13:30)
[2018-11-17] MEDS ORDERED: hydrALAZINE 20 MG/ML VIAL SLOW IVP PRN (13:30)
[2018-11-17] MEDS ORDERED: HYDROcodone/Acetaminophen 5/325 mg Tablet PO PRN ×2 (13:30)
[2018-11-17] MEDS ORDERED: Morphine 2 MG/ML SYRINGE SLOW IVP PRN (13:30)
[2018-11-17] MEDS ORDERED: Bisacodyl 5 MG TAB PO PRN (13:30)
[2018-11-17] MEDS ORDERED: Bisacodyl 10 MG SUPP PR PRN (13:30)
[2018-11-17] MEDS ORDERED: Post-Op Insulin Drip Protocol IVPB ONE (13:30)
[2018-11-17] MEDS ORDERED: Ondansetron PF 4 MG/2 ML Vial IVP PRN (13:30)
[2018-11-17] MEDS ORDERED: Phenylephrine 10 MG/NS 250 ML 250 ML IVPB PRN (13:30)
[2018-11-17] MEDS ORDERED: Norepinephrine 8 MG/0.9% NS 250 ML IVPB PRN (13:30)
[2018-11-17 13:41] LABS: Hemoglobin 11.3 g/dL (14.0-18.0); Mean Corpuscular HGB CONC 33.3 g/dL (32.0-36.0); Mean Corpuscular Hemoglobin 31.1 pg (27.0-31.0); Mean Corpuscular Volume 93.2 fL (78.0-98.0); Mean Platelet Volume 8.8 fL (7.4-10.4); Platelet Count 151 thou/uL (130-400); RBC Distribution Width 12.6 % (11.5-14.5); Red Blood Cell (RBC) Count 3.63 mill/uL (4.70-6.10)
[2018-11-17] MEDS: HUMULIN R 100 UNITS in Sodium Chloride 0.9% 100 ML IVPB SCH ×2 (13:45→17:33)
[2018-11-17 13:46] LABS: INR-International Normal Ratio 1.4; Prothrombin Time 16.8 SEC (12.0-14.7)
[2018-11-17] MEDS: Norepinephrine 8 MG in Dextrose 5% in Water 242 ML IVPB PRN ×3 (13:46→19:52)
[2018-11-17 13:47] LABS: PTT 39.4 SEC (22.9-36.1)
[2018-11-17 13:55] LABS: Band 18 % (5-11); Eosinophils 1 % (0-10); Lymphocytes 3 % (21-51); MDiff Complete? YES; Monocytes 2 % (0-10); Myelocyte 2 % (0-0); Neutrophil 72 % (42-75); Platelet Morphology Comment Appears Adequate; Polychromasia SLIGHT = 2-3 cells (100X) (0-2/hpf); Reactive Lymphocytes 1 % (0-10)
[2018-11-17 13:59] LABS: Chloride 113 mmol/L (98-107); Potassium 5.1 mmol/L (3.5-5.1); Sodium 141 mmol/L (136-145)
[2018-11-17] MEDS ORDERED: Insulin Regular 300 UNITS/3 ML VIAL SC PRN (13:59)
[2018-11-17 14:00] LABS: Calcium 7.8 mg/dL (7.8-10.44); Glucose 171 mg/dL (83-110)
[2018-11-17] MEDS ORDERED: Ketorolac Tromethamine 30 MG/ML VIAL IVP SCH (14:00)
[2018-11-17] MEDS: D5 1/2 NS w/20 mEq KCL 1,000 ML IV SCH (14:00)
[2018-11-17] MEDS: CEFAZOLIN 2 GM in Premix Bag 1 BAG IVPB SCH ×2 (14:00→21:16)
[2018-11-17 14:02] LABS: Anion Gap 11 mmol/L (10-20); Carbon Dioxide 22 mmol/L (23-31)
[2018-11-17 14:04] LABS: Calc. Creatinine Clearance 0 mL/min (70-130); Estimated GFR-MDRD Greater than 90
[2018-11-17 14:05] LABS: BUN (Urea Nitrogen) 13 mg/dL (8.4-25.7)
--- NOTE | 2018-11-17 14:33 | RAD ---
SINGLE VIEW CHEST: Date: 11/17/18 COMPARISON: None. HISTORY: Status post open heart surgery. FINDINGS: Single view of the chest shows a normal sized cardiomediastinal silhouette. An endotracheal tube is s een with its tip at the upper border of the clavicles. The patient is status post sternotomy. A centr al venous catheter is seen with its tip in the superior vena cava. A mediastinal drain and left chest tube are seen without evidence of pneumothorax. There appears to be a small left pleural effusion. IMPRESSION: 1. Appropriate position of lines and tubes status post sternotomy. 2. Small left pleural effusion. POS: CET
[2018-11-17] MEDS: Amiodarone 200 MG TAB PO SCH ×2 (14:41→20:23)
[2018-11-17 15:48] VITALS: BMI 23.3
--- NOTE | 2018-11-17 17:23 | OP ---
DATE OF PROCEDURE: 11/17/2018 PREOPERATIVE DIAGNOSES: Coronary artery disease/congestive heart failure/severely depressed left ventricular ejection fraction/hypertension/dyslipidemia. POSTOPERATIVE DIAGNOSES: Coronary artery disease/congestive heart failure/severely depressed left ventricular ejection fraction/hypertension/dyslipidemia. PROCEDURES PERFORMED: 1. Coronary artery bypass grafting x3;. a. Left internal mammary artery to 2.0-mm mid LAD, good conduit target. b. Reverse saphenous vein to 2.5 mm ramus, good conduit target. c. Reverse saphenous vein to 2.0 mm PDA, good conduit target. CO-SURGEON: 1. Dr. Suresh Sim. 2. Dr. Stanislav Graham. ANESTHESIA: General endotracheal, Dr. Paco Sosa. PUMP TIME: 88 minutes. CROSS-CLAMP TIME: 46 minutes. LOW-CORE TEMPERATURE: 34 degrees Celsius. STORAGE CENTER MANAGER: Ariadna Shi. DRAINS: 24-Namibian chest tube x1 with two 19-Namibian chest tubes. DRIPS: Levophed. TRANSFUSIONS: None. DESCRIPTION OF PROCEDURE: After proper consent was obtained, the patient was brought to the operating room and placed supine position on the operating room table. Appropriate central line and monitor were placed and general endotracheal anesthesia induced. The chest and the legs were prepped and draped in usual sterile fashion. Greater saphenous vein was harvested from the bilateral lower extremities. Wounds were irrigated and closed in layers. A median sternotomy was performed. Left internal mammary artery was harvested as a pedicle graft. The patient was systemically heparinized. Distal pedicle was divided and infused with papaverine. Pericardium was divided with electrocautery. Pericardial stay sutures were placed. Aortic and atrial cannulation was performed. After adequate heparinization, the patient was placed on cardiopulmonary bypass. Distal targets were marked. Aortic cross-clamp was applied and antegrade sanguineous cardioplegic arrest was obtained. 1 L of antegrade cold [place] cardioplegia was given. Topical cold solution was used. Reverse saphenous vein was anastomosed to PDA in an end-to-side fashion with running 7-0 Prolene suture. Anastomosis was tested and was hemostatic. Reverse saphenous vein was anastomosed to ramus in an end-to-side fashion with running 7-0 suture. Anastomosis was tested and was hemostatic. Another 300 mL of antegrade cardioplegia was given, including down the graft. The mammary artery was brought through the window in the pericardium and anastomosed to the mid LAD in an end-to-side fashion with running 7-0 Prolene suture. On release of mammary clamps, good hooding anastomosis and good distal flow. Pedicle was secured with interrupted 6-0 Prolene suture. Cross-clamp was removed and partial occluding clamp placed. The saphenous veins were anastomosed to individual puncture sites on the aorta with running 6-0 Prolene suture. The aorta was rotated into the right chest anatomically. Grafts were adjusted appropriately. Partial occluding clamp was removed and graft deaired. Anastomoses were inspected for hemostasis, which was good. The patient was warmed and weaned from cardiopulmonary bypass. During the weaning process, he began to have blood welling up under the acute margin of the heart. We elevated the heart and was unable to place a stitch accurately in the toe with the graft due to wall motion. I elected to re-crossclamp and re-cardioplegia the patient. After the patient had arrested, we were able to place 2 stitches in the PDA graft for hemostasis. The cross-clamp was again removed. The stitch was placed in the toe of the mammary artery graft. After adequate hemostasis has been obtained, the patient was warmed and weaned from cardiopulmonary bypass. After resumption of sinus rhythm, good hemodynamics, temperature greater than 36.5, bypass was discontinued. Transfusion was not given. Protamine was administered. Decannulation was performed and pursestring suture secured. The cardioplegia site, which was repaired with interrupted 4-0 and 5-0 Prolene suture, began to bleed. We placed multiple pledgetted 4-0 and 5-0 Prolene sutures to obtain adequate hemostasis. Once hemostasis was obtained, sternum was closed with #7 wire. Two 19-Namibian chest tubes were placed, one in each pleural cavity and a 24-Namibian chest tube in the mediastinum. The sternum was treated with vancomycin paste. Sternum was treated with platelet-rich plasma. Wire was twisted. Wounds were irrigated and treated with platelet-poor plasma and closed in multiple layers. Needle, sponge, and instrument counts were all reported as correct at the end of the procedure. The patient tolerated the procedure well, was transferred to the intensive care unit in stable, but critical condition. Job ID: [id number]
[2018-11-17] MEDS: Ketorolac Tromethamine 30 MG/ML VIAL IVP SCH ×2 (17:33→23:05)
--- NOTE | 2018-11-17 18:53 | EKG ---
Test Reason : POST CABG Blood Pressure : / mmHG Vent. Rate : 068 BPM Atrial Rate : 068 BPM P-R Int : 146 ms QRS Dur : 132 ms QT Int : 484 ms P-R-T Axes : 045 026 059 degrees QTc Int : 514 ms Normal sinus rhythm Non-specific intra-ventricular conduction block Inferior infarct (cited on or before 17-OCT-2018) Abnormal ECG When compared with ECG of 17-OCT-2018 16:56, Premature ventricular complexes are no longer Present T wave inversion no longer evident in Inferior leads T wave inversion no longer evident in Anterolateral leads Confirmed by [place], DR. Pagan ([id number]) on 11/17/2018 6:53:35 PM Referred By: Martinez MURRELL Confirmed By:DR. Latasha WESTBROOK MD
[2018-11-17 19:21] LABS: Hemoglobin 10.9 g/dL (14.0-18.0)
[2018-11-17 19:37] LABS: Potassium 5.4 mmol/L (3.5-5.1)
[2018-11-17] MEDS: Famotidine/PF 20 mg/2ml Vial SLOW IVP SCH (19:50)
[2018-11-17] MEDS: Atorvastatin Calcium 20 MG TAB PO SCH (20:23)
[2018-11-17 23:34] LABS: CO2 Tension 27.8 mmHg (35.0-45.0); Calcium, Ionized 1.08 mmol/L (1.12-1.30); Carboxyhemoglobin (COHb) 0.3 gm% (0.0-3.0); Hemoglobin (Hb) 10.4 g/dL (14.0-18.0); O2 Tension (PaO2) 146.3 mmHg (> 70.0); Potassium - ABG Lab 4.49 mmol/L (3.70-5.30); pH, Arterial 7.45 (7.35-7.45)
[2018-11-18 04:03] LABS: #Lymphocytes 0.8 thou/uL (1.20-3.40); %Basophils 0.2 % (0.0-1.0); %Eosinophils 0.2 % (0.0-10.0); %Lymphocytes 5.3 % (21.0-51.0); %Monocytes 6.5 % (0.0-10.0); %Neutrophils 87.9 % (42.0-75.0); Mean Corpuscular HGB CONC 33.6 g/dL (32.0-36.0); Mean Corpuscular Hemoglobin 31.4 pg (27.0-31.0); Mean Corpuscular Volume 93.3 fL (78.0-98.0); Mean Platelet Volume 8.6 fL (7.4-10.4); Platelet Count 132 thou/uL (130-400); RBC Distribution Width 12.6 % (11.5-14.5); Red Blood Cell (RBC) Count 2.88 mill/uL (4.70-6.10); White Blood Cell (WBC) Count 15.9 thou/uL (4.8-10.8)
[2018-11-18 04:40] LABS: Anion Gap 13 mmol/L (10-20); BUN (Urea Nitrogen) 21 mg/dL (8.4-25.7); Calc. Creatinine Clearance 56 mL/min (70-130); Calcium 7.7 mg/dL (7.8-10.44); Carbon Dioxide 20 mmol/L (23-31); Chloride 111 mmol/L (98-107); Estimated GFR-MDRD 54; Glucose 167 mg/dL (83-110); Potassium 4.9 mmol/L (3.5-5.1); Sodium 139 mmol/L (136-145)
[2018-11-18] MEDS: CEFAZOLIN 2 GM in Premix Bag 1 BAG IVPB SCH (05:08)
[2018-11-18] MEDS: Ketorolac Tromethamine 30 MG/ML VIAL IVP SCH ×3 (05:08→17:33)
[2018-11-18] MEDS ORDERED: FLU VACC TS2019-20(65YR UP)/PF 180 MCG/0.5 ML SYRINGE IM ONE (09:00)
[2018-11-18] MEDS: Aspirin 325 MG TAB PO SCH (09:22)
[2018-11-18] MEDS: Amiodarone 200 MG TAB PO SCH ×3 (09:22→20:20)
[2018-11-18] MEDS: Famotidine/PF 20 mg/2ml Vial SLOW IVP SCH ×2 (09:26→20:20)
[2018-11-18] MEDS: Magnesium 2 GM/50 ML 2 GM in Premix Bag 1 BAG IVPB SCH (09:26)
--- NOTE | 2018-11-18 10:59 | PDOC.CPN ---
- Subjective Date: 11/18/18 Time: 10:00 Interval history: pt extubated. Doing better. On low dose pressors - Objective Allergies/Adverse Reactions: Allergies Allergy/AdvReac Type Severity Reaction Status Date / Time No Known Allergies Allergy Verified 11/16/18 11:21 Visit Medications: Current Medications Acetaminophen (Tylenol) 650 mg PO Q6H PRN PRN Reason: Headache/Fever Or Mild Pain Hydrocodone Bitart/Acetaminophen ([place] 5/325) 1 tab PO Q4H PRN PRN Reason: Moderate Pain (4-6) Hydrocodone Bitart/Acetaminophen ([place] 5/325) 2 tab PO Q4H PRN PRN Reason: Severe Pain (7-10) Al Hydroxide/Mg Hydroxide (Maalox) 30 ml PO Q4H PRN PRN Reason: Indigestion Albumin Human (Albumin 5%) 12.5 gm IVPB Q6H PRN PRN Reason: To Maintain SBP> 90 mmHG Stop: 11/18/18 13:31 Last Admin: 11/18/18 05:46 Dose: 12.5 gm Albumin Human (Albumin 5%) 25 gm IVPB Q6H PRN PRN Reason: To Maintain SBP > 90 mmHG Stop: 11/18/18 13:31 Albumin Human (Albumin 5%) 25 gm IVPB ONE ONE Stop: 11/18/18 10:51 Albuterol/Ipratropium (Duoneb) 3 ml NEB [id number] PRN PRN Reason: SHORTNESS OF BREATH Amiodarone HCl (Cordarone) 200 mg PO TID [facility] Last Admin: 11/18/18 09:22 Dose: 200 mg Aspirin (Aspirin) 325 mg PO DAILY [facility] Last Admin: 11/18/18 09:22 Dose: 325 mg Atorvastatin Calcium (Lipitor) 20 mg PO QPM [facility] Last Admin: 11/17/18 20:23 Dose: Not Given Bisacodyl (Dulcolax) 10 mg PO Q12H PRN PRN Reason: Constipation Bisacodyl (Dulcolax) 10 mg [place] Q12H PRN PRN Reason: Constipation Dextrose/Water (Dextrose 50%) 25 gm SLOW IVP PRN PRN PRN Reason: PER HYPOGLYCEMIC PROTOCOL Famotidine (Pepcid) 20 mg SLOW IVP Q12HR [facility] Last Admin: 11/18/18 09:26 Dose: 20 mg Fentanyl (Sublimaze) 25 mcg SLOW IVP Q2H PRN PRN Reason: Moderate Pain (4-6) Stop: 11/19/18 12:43 Fentanyl (Sublimaze) 50 mcg SLOW IVP Q2H PRN PRN Reason: Severe Pain (7-10) Stop: 11/19/18 12:43 Glucagon (Glucagon) 1 mg SC PRN PRN PRN Reason: PER HYPOGLYCEMIC PROTOCOL Guaifenesin/Dextromethorphan (Robitussin Dm) 15 ml PO Q4H PRN PRN Reason: Cough Hydralazine HCl (Apresoline) 10 mg SLOW IVP Q6H PRN PRN Reason: To Maintain SBP< 140mmHG Norepinephrine Bitartrate 8 mg (/ Dextrose/Water) 250 mls @ 0 mls/hr IVPB INF PRN; Protocol PRN Reason: TO MAINTAIN MAP > 65 Last Admin: 11/17/18 19:52 Dose: 250 mls Insulin Human Regular 100 (units/ Sodium Chloride) 101 mls @ 0 mls/hr IVPB INF ABDIRASHID; Protocol Last Admin: 11/17/18 17:33 Dose: 101 mls Dextrose/Water (D5w) 1,000 mls @ 0 mls/hr IV INF PRN PRN Reason: PRN HYPOGLYCEMIC PROTOCOL Potassium Chloride/Dextrose/Sod Cl (D5 1/2 Ns W/20 Meq Kcl) 1,000 mls @ 40 mls/ hr IV .Q24H [facility] Last Admin: 11/17/18 14:00 Dose: 1,000 mls Hetastarch/Sodium Chloride (Hespan) 500 mls @ 0 mls/hr IVPB PRN PRN PRN Reason: To Maintain SBP > 90mmHg Stop: 11/18/18 12:43 Magnesium Sulfate 2 gm/ Device 50 mls @ 50 mls/hr IVPB QAM [facility] Stop: 11/19/18 09:59 Last Admin: 11/18/18 09:26 Dose: 50 mls Nitroglycerin/Dextrose (Nitroglycerin 50 Mg/250 Ml Bot) 250 mls @ 0 mls/hr IVPB PRN PRN; Protocol PRN Reason: To Maintain SBP< 140mmHG Phenylephrine HCl (Jasson-Synephrine) 250 mls @ 0 mls/hr IVPB PRN PRN; Protocol PRN Reason: To maintain SBP > 90 mmHG Insulin Glargine (Lantus) 0 units SC ONE PRN PRN Reason: POST OPEN HEART ORDERS Stop: 11/18/18 17:00 Insulin Human Regular (Humulin R) 0 units SC Q4H PRN; Protocol PRN Reason: POST CABG SLIDING SCALE Last Admin: 11/17/18 14:08 Dose: 3 unit Ketorolac Tromethamine (Toradol) 30 mg IVP Q6HR ABDIRASHID Stop: 11/20/18 18:01 Last Admin: 11/18/18 05:08 Dose: 30 mg Morphine Sulfate (Morphine) 2 mg SLOW IVP Q15MIN PRN PRN Reason: Severe Pain (7-10) Ondansetron HCl (Zofran) 4 mg IVP Q6H PRN PRN Reason: Nausea/Vomiting Potassium Chloride (Kcl) 20 meq IVPB PRN PRN PRN Reason: K level </= 4.0 Promethazine HCl (Phenergan) 6.25 mg IM Q4H PRN PRN Reason: Nausea/Vomiting Sodium Chloride (Flush - Normal Saline) 10 ml IVF PRN PRN PRN Reason: Saline Flush Vital Signs & Weight: Vital Signs Temp Pulse Ox 11/18/18 09:42 96 11/18/18 08:00 96 11/18/18 07:00 97.8 F 11/18/18 03:00 98.7 F 11/18/18 00:00 99 11/17/18 23:00 98.3 F Weight 181 lb 7.047 oz - Physical Exam General: alert & oriented x3 HEENT: normocephaly Neck: supple neck, midline trachea, no masses Cardiac: no murmur, regular rate, regular rhythm Lungs: normal exam Neuro: grossly intact Abdomen: soft Extremities: no clubbing, no edema Musculoskeletal: no pain - Labs Result Diagrams: 11/19/18 05:55 11/19/18 05:55 - Assessment/Plan Assessment/Plan: CAD s/p CABG Ischemic CM Syncope ETOH abuse On Norepinephrine Extubated No BB, ACEI till off pressors Will follow
--- NOTE | 2018-11-18 12:37 | RAD ---
PORTABLE AP CHEST XRAY: HISTORY: Post open heart surgery. COMPARISON: 11/17/2018. FINDINGS: Endotracheal tube has been removed. The right subclavian central venous catheter, mediastinal drains , and left-sided thoracostomy tubes are stable in position. There are bilateral thoracostomy tubes. Postsurgical changes related to median sternotomy are again seen. There is a suggestion of small le ft pleural effusion and volume loss at the left lung base. Chronic lung changes are again seen. Car diac silhouette and pulmonary vasculature are within normal limits for the portable technique of the study. No other interval change. IMPRESSION: Interval removal of endotracheal tube. Remaining lines and tubes are stable in position without evid ence of a pneumothorax. There is volume loss present at the left lung base. Aeration in the left he mithorax has improved from the prior exam. POS: OFF
[2018-11-18] MEDS: D5 1/2 NS w/20 mEq KCL 1,000 ML IV SCH (13:46)
[2018-11-18] MEDS: Atorvastatin Calcium 20 MG TAB PO SCH (20:20)
[2018-11-19] MEDS: Ketorolac Tromethamine 30 MG/ML VIAL IVP SCH ×4 (00:52→17:30)
[2018-11-19 00:57] LABS: Puncture Site ALINE
[2018-11-19 06:13] LABS: #Lymphocytes 0.7 thou/uL (1.20-3.40); #Monocytes 0.6 thou/uL (0.11-0.59); #Neutrophils 6.1 thou/uL (1.40-6.50); %Basophils 0.3 % (0.0-1.0); %Eosinophils 0.1 % (0.0-10.0); %Lymphocytes 9.8 % (21.0-51.0); %Monocytes 8.5 % (0.0-10.0); %Neutrophils 81.3 % (42.0-75.0); Hemoglobin 6.4 g/dL (14.0-18.0); Mean Corpuscular Hemoglobin 31.7 pg (27.0-31.0); Mean Corpuscular Volume 93.2 fL (78.0-98.0); Mean Platelet Volume 8.7 fL (7.4-10.4); Platelet Count 73 thou/uL (130-400); RBC Distribution Width 12.7 % (11.5-14.5); Red Blood Cell (RBC) Count 2.03 mill/uL (4.70-6.10); White Blood Cell (WBC) Count 7.4 thou/uL (4.8-10.8)
[2018-11-19 06:29] LABS: Anion Gap 9 mmol/L (10-20); BUN (Urea Nitrogen) 22 mg/dL (8.4-25.7); Calc. Creatinine Clearance 92 mL/min (70-130); Calcium 7.5 mg/dL (7.8-10.44); Carbon Dioxide 23 mmol/L (23-31); Chloride 106 mmol/L (98-107); Estimated GFR-MDRD Greater than 90; Glucose 115 mg/dL (83-110); Potassium 4.4 mmol/L (3.5-5.1); Sodium 134 mmol/L (136-145)
--- NOTE | 2018-11-19 08:18 | PDOC.CPN ---
- Subjective Date: 11/19/18 Time: 14:34 Interval history: Pt with decreased HB; transfused. CT chest negative for bleeding - Objective Allergies/Adverse Reactions: Allergies Allergy/AdvReac Type Severity Reaction Status Date / Time No Known Allergies Allergy Verified 11/16/18 11:21 Visit Medications: Current Medications Acetaminophen (Tylenol) 650 mg PO Q6H PRN PRN Reason: Headache/Fever Or Mild Pain Hydrocodone Bitart/Acetaminophen ([place] 5/325) 1 tab PO Q4H PRN PRN Reason: Moderate Pain (4-6) Hydrocodone Bitart/Acetaminophen ([place] 5/325) 2 tab PO Q4H PRN PRN Reason: Severe Pain (7-10) Al Hydroxide/Mg Hydroxide (Maalox) 30 ml PO Q4H PRN PRN Reason: Indigestion Albuterol/Ipratropium (Duoneb) 3 ml NEB [id number] PRN PRN Reason: SHORTNESS OF BREATH Amiodarone HCl (Cordarone) 200 mg PO TID [facility] Last Admin: 11/18/18 20:20 Dose: 200 mg Aspirin (Aspirin) 325 mg PO DAILY [facility] Last Admin: 11/18/18 09:22 Dose: 325 mg Atorvastatin Calcium (Lipitor) 20 mg PO QPM [facility] Last Admin: 11/18/18 20:20 Dose: 20 mg Bisacodyl (Dulcolax) 10 mg PO Q12H PRN PRN Reason: Constipation Bisacodyl (Dulcolax) 10 mg [place] Q12H PRN PRN Reason: Constipation Dextrose/Water (Dextrose 50%) 25 gm SLOW IVP PRN PRN PRN Reason: PER HYPOGLYCEMIC PROTOCOL Famotidine (Pepcid) 20 mg SLOW IVP Q12HR [facility] Last Admin: 11/18/18 20:20 Dose: 20 mg Fentanyl (Sublimaze) 25 mcg SLOW IVP Q2H PRN PRN Reason: Moderate Pain (4-6) Stop: 11/19/18 12:43 Fentanyl (Sublimaze) 50 mcg SLOW IVP Q2H PRN PRN Reason: Severe Pain (7-10) Stop: 11/19/18 12:43 Glucagon (Glucagon) 1 mg SC PRN PRN PRN Reason: PER HYPOGLYCEMIC PROTOCOL Guaifenesin/Dextromethorphan (Robitussin Dm) 15 ml PO Q4H PRN PRN Reason: Cough Hydralazine HCl (Apresoline) 10 mg SLOW IVP Q6H PRN PRN Reason: To Maintain SBP< 140mmHG Norepinephrine Bitartrate 8 mg (/ Dextrose/Water) 250 mls @ 0 mls/hr IVPB INF PRN; Protocol PRN Reason: TO MAINTAIN MAP > 65 Last Admin: 11/17/18 19:52 Dose: 250 mls Insulin Human Regular 100 (units/ Sodium Chloride) 101 mls @ 0 mls/hr IVPB INF ABDIRASHID; Protocol Last Admin: 11/17/18 17:33 Dose: 101 mls Dextrose/Water (D5w) 1,000 mls @ 0 mls/hr IV INF PRN PRN Reason: PRN HYPOGLYCEMIC PROTOCOL Potassium Chloride/Dextrose/Sod Cl (D5 1/2 Ns W/20 Meq Kcl) 1,000 mls @ 40 mls/ hr IV .Q24H [facility] Last Admin: 11/18/18 13:46 Dose: 1,000 mls Magnesium Sulfate 2 gm/ Device 50 mls @ 50 mls/hr IVPB QAM [facility] Stop: 11/19/18 09:59 Last Admin: 11/18/18 09:26 Dose: 50 mls Nitroglycerin/Dextrose (Nitroglycerin 50 Mg/250 Ml Bot) 250 mls @ 0 mls/hr IVPB PRN PRN; Protocol PRN Reason: To Maintain SBP< 140mmHG Phenylephrine HCl (Jasson-Synephrine) 250 mls @ 0 mls/hr IVPB PRN PRN; Protocol PRN Reason: To maintain SBP > 90 mmHG Insulin Human Regular (Humulin R) 0 units SC Q4H PRN; Protocol PRN Reason: POST CABG SLIDING SCALE Last Admin: 11/17/18 14:08 Dose: 3 unit Ketorolac Tromethamine (Toradol) 30 mg IVP Q6HR [facility] Stop: 11/20/18 18:01 Last Admin: 11/19/18 05:56 Dose: 30 mg Morphine Sulfate (Morphine) 2 mg SLOW IVP Q15MIN PRN PRN Reason: Severe Pain (7-10) Ondansetron HCl (Zofran) 4 mg IVP Q6H PRN PRN Reason: Nausea/Vomiting Potassium Chloride (Kcl) 20 meq IVPB PRN PRN PRN Reason: K level </= 4.0 Promethazine HCl (Phenergan) 6.25 mg IM Q4H PRN PRN Reason: Nausea/Vomiting Sodium Chloride (Flush - Normal Saline) 10 ml IVF PRN PRN PRN Reason: Saline Flush Vital Signs & Weight: Vital Signs Temp Pulse Resp BP Pulse Ox 11/19/18 07:16 98.2 F 72 20 112/54 L 96 11/19/18 06:45 95 11/19/18 03:15 95 11/19/18 00:00 98.2 F Weight 182 lb 12.211 oz - Physical Exam General: alert & oriented x3 HEENT: normocephaly Neck: midline trachea Cardiac: no murmur, regular rate, regular rhythm Lungs: normal exam Neuro: grossly intact Extremities: no edema - Labs Result Diagrams: 11/19/18 05:55 11/19/18 05:55 - Assessment/Plan Assessment/Plan: CAD s/p CABG Ischemic CM Syncope ETOH abuse 11/19/2018 Pt without symptoms Has been transfused Off pressors 11/18 REC Off Norepinephrine Extubated No BB, ACEI till off pressors Will follow
[2018-11-19] MEDS: Magnesium 2 GM/50 ML 2 GM in Premix Bag 1 BAG IVPB SCH (09:51)
[2018-11-19] MEDS: Famotidine/PF 20 mg/2ml Vial SLOW IVP SCH ×2 (09:51→19:50)
[2018-11-19] MEDS: Amiodarone 200 MG TAB PO SCH ×3 (09:52→19:50)
[2018-11-19] MEDS: Aspirin 325 MG TAB PO SCH (09:52)
--- NOTE | 2018-11-19 11:14 | CT ---
CT CHEST WITH CONTRAST CLINICAL INDICATION: Widened mediastinum post CABG. Right hilar fullness. COMPARISON: Chest x-ray on 11/19/2018 FINDINGS: Aorta: Vascular calcifications are seen in the thoracic aorta. The thoracic aorta is ectatic measurin g 4 cm in AP dimensions. No aortic dissection is seen. Lungs: Bilateral thoracostomy tubes are noted in place. No pneumothorax is visualized. Trace bilatera l pleural effusions are seen with parenchymal lung changes at each lung base and dependently likely related to atelectasis. Mediastinum: Postsurgical changes related to CABG are noted. Coronary artery calcifications are visua lized. There is no evidence of a mediastinal hematoma. The question mediastinal widening is likely attributable to tortuosity of vascular structures. A right subclavian vein central venous catheter is noted in place with the tip terminating at the caval atrial junction. A mediastinal drain is noted in place. There is gas seen anteriorly within the mediastinum and in the region of the epicardial fat likely related to the placement of the bilateral thoracostomy tubes and a mediastinal drain all of which enter via an inferior substernal approach. Minimal increased density is seen in a retrosternal location represent a very small amount of hemorrhage due to recent surgery. Thyroid gland: Normal CT appearance. Osseous structures: Degenerative changes are seen in the spine. Chest wall: Minimal subcutaneous edema related to recent postsurgical changes. Upper abdomen: Multiple hypodense lesions are seen in the right hepatic lobe with a partially enhanci ng lesion in the lateral segment left hepatic lobe. Several of these lesions demonstrate characteristics which are most likely attributable to hemangiomas. However, CT scan of the abdomen fo [facility] hemangioma protocol is recommended for further evaluation and characterization. Largest lobulated hypodense mass in the posterior segment right hepatic lobe measures 4.3 cm. A subcentimeter too small to characterize hypodense lesion is seen in the body of the spleen probably related to small splenic cyst. Increased density material is seen within the fundus of the stomach which could be related to recent ingested material. IMPRESSION: 1. History for this examination is mediastinal widening post CABG with right hilar fullness. However, these findings are likely attributable to the tortuosity of vascular structures as there is no mass or hematoma in the mediastinum or in the right hilar region. 2. Postsurgical changes related to recent CABG with mediastinal drain and bilateral thoracostomy tube s in place. There is small amount of gas in the epicardial fat as well as in the anterior mediastinum related to the thoracostomy tubes and mediastinal drain. 3. Cardiomegaly with vascular calcifications in the coronary arteries and involving the thoracic aort a. 4. Tiny bilateral pleural effusions and associated bibasilar areas of consolidation probably attribut able to atelectasis. 5. Hypodense lesions in each lobe of the liver with peripheral enhancement of a few of these lesions especially the lesion left hepatic lobe. Findings may be related to multiple hemangiomas, but CT abdomen following the hemangioma protocol is recommended for further evaluation. 6. Probable small splenic cyst.
--- NOTE | 2018-11-19 12:23 | RAD ---
PORTABLE AP CHEST X-RAY: HISTORY: Post open heart surgery. COMPARISON: 11/18/2018 FINDINGS: A right subclavian central venous catheter as well as a mediastinal drain and bilateral thoracostomy tubes remain in place and unchanged in position. Post surgical changes related to CABG are again note d. The cardiac silhouette is magnified by projection, probably mildly enlarged. There is mild atelect asis present at each lung base. No pneumothorax or definite pleural effusion is appreciated. IMPRESSION: Lines and tubes stable in position with mild bibasilar atelectasis and postoperative changes related to coronary artery bypass grafting. POS: OFF
[2018-11-19] MEDS ORDERED: ISOVUE-370 76%-LOCM 1 ML ONE (13:17)
[2018-11-19] MEDS: Atorvastatin Calcium 20 MG TAB PO SCH (19:50)
[2018-11-20] MEDS: Ketorolac Tromethamine 30 MG/ML VIAL IVP SCH ×4 (02:29→17:53)
[2018-11-20 05:53] LABS: #Lymphocytes 0.7 thou/uL (1.20-3.40); #Monocytes 0.5 thou/uL (0.11-0.59); #Neutrophils 5.5 thou/uL (1.40-6.50); %Basophils 0.1 % (0.0-1.0); %Eosinophils 0.5 % (0.0-10.0); %Lymphocytes 10.5 % (21.0-51.0); %Monocytes 7.7 % (0.0-10.0); %Neutrophils 81.2 % (42.0-75.0); Hemoglobin 10.1 g/dL (14.0-18.0); Mean Corpuscular HGB CONC 34.5 g/dL (32.0-36.0); Mean Corpuscular Hemoglobin 30.9 pg (27.0-31.0); Mean Corpuscular Volume 89.6 fL (78.0-98.0); Mean Platelet Volume 8.9 fL (7.4-10.4); Platelet Count 75 thou/uL (130-400); RBC Distribution Width 13.4 % (11.5-14.5); Red Blood Cell (RBC) Count 3.26 mill/uL (4.70-6.10); White Blood Cell (WBC) Count 6.8 thou/uL (4.8-10.8)
[2018-11-20] MEDS ORDERED: traMADol HCl 50 MG TAB PO PRN ×2 (06:03)
[2018-11-20 06:04] LABS: Anion Gap 8 mmol/L (10-20); BUN (Urea Nitrogen) 16 mg/dL (8.4-25.7); Calc. Creatinine Clearance 101 mL/min (70-130); Calcium 7.6 mg/dL (7.8-10.44); Carbon Dioxide 25 mmol/L (23-31); Chloride 106 mmol/L (98-107); Estimated GFR-MDRD Greater than 90; Glucose 107 mg/dL (83-110); Potassium 4.4 mmol/L (3.5-5.1); Sodium 135 mmol/L (136-145)
--- NOTE | 2018-11-20 07:47 | RAD ---
Chest one view HISTORY: Heart surgery. Follow-up. COMPARISON: 11/19/2018. FINDINGS: Cardiac silhouette is magnified and enlarged. Pulmonary vasculature upper limits of normal. Mediastinum is midline with postoperative changes and aortic calcification. Apparent widening is unchanged in appearance, described as tortuosity of the aorta on interval CT chest. Linear parenchyma l opacity over the superior segment right lower lobe and at each lung base. Atelectasis at the left base is stable. Lines and tubes appear unchanged in position. No evidence of pneumothorax. Cardiac mo nitor leads overlie the chest. IMPRESSION: Slight increase in right lower lobe atelectasis. Otherwise stable postoperative appearanc e of the chest.
[2018-11-20] MEDS: Furosemide 40 MG TAB PO SCH ×2 (09:39→13:46)
[2018-11-20] MEDS: Amiodarone 200 MG TAB PO SCH ×3 (09:39→20:11)
[2018-11-20] MEDS: Potassium Chloride 10 MEQ TAB PO SCH ×2 (09:39→17:53)
[2018-11-20] MEDS: Aspirin 325 MG TAB PO SCH (09:39)
[2018-11-20] MEDS: Carvedilol 3.125 MG TAB PO SCH ×2 (09:39→17:53)
--- NOTE | 2018-11-20 12:40 | PDOC.CPN ---
- Subjective Date: 11/20/18 Time: 12:48 Interval history: The pt seen and examined. No overnight events. No cardiac complaints. - Objective Allergies/Adverse Reactions: Allergies Allergy/AdvReac Type Severity Reaction Status Date / Time No Known Allergies Allergy Verified 11/16/18 11:21 Visit Medications: Current Medications Acetaminophen (Tylenol) 650 mg PO Q6H PRN PRN Reason: Headache/Fever Or Mild Pain Al Hydroxide/Mg Hydroxide (Maalox) 30 ml PO Q4H PRN PRN Reason: Indigestion Albuterol/Ipratropium (Duoneb) 3 ml NEB [id number] PRN PRN Reason: SHORTNESS OF BREATH Amiodarone HCl (Cordarone) 200 mg PO TID [facility] Last Admin: 11/20/18 09:39 Dose: 200 mg Aspirin (Aspirin) 325 mg PO DAILY [facility] Last Admin: 11/20/18 09:39 Dose: 325 mg Atorvastatin Calcium (Lipitor) 20 mg PO QPM [facility] Last Admin: 11/19/18 19:50 Dose: 20 mg Bisacodyl (Dulcolax) 10 mg PO Q12H PRN PRN Reason: Constipation Bisacodyl (Dulcolax) 10 mg [place] Q12H PRN PRN Reason: Constipation Carvedilol (Coreg) 3.125 mg PO BID-[facility] Last Admin: 11/20/18 09:39 Dose: 3.125 mg Furosemide (Lasix) 40 mg PO 0900,1400 [facility] Last Admin: 11/20/18 09:39 Dose: 40 mg Guaifenesin/Dextromethorphan (Robitussin Dm) 15 ml PO Q4H PRN PRN Reason: Cough Hydralazine HCl (Apresoline) 10 mg SLOW IVP Q6H PRN PRN Reason: To Maintain SBP< 140mmHG Ketorolac Tromethamine (Toradol) 30 mg IVP Q6HR [facility] Stop: 11/20/18 18:01 Last Admin: 11/20/18 11:27 Dose: 30 mg Ondansetron HCl (Zofran) 4 mg IVP Q6H PRN PRN Reason: Nausea/Vomiting Pantoprazole Sodium (Protonix) 40 mg PO DAILY [facility] Last Admin: 11/20/18 09:39 Dose: 40 mg Potassium Chloride (Kcl) 20 meq IVPB PRN PRN PRN Reason: K level </= 4.0 Potassium Chloride (Klor-Con 10) 10 meq PO BID-[facility] Last Admin: 11/20/18 09:39 Dose: 10 meq Promethazine HCl (Phenergan) 6.25 mg IM Q4H PRN PRN Reason: Nausea/Vomiting Sodium Chloride (Flush - Normal Saline) 10 ml IVF PRN PRN PRN Reason: Saline Flush Tramadol HCl (Ultram) 50 mg PO Q6H PRN PRN Reason: Moderate Pain (4-6) Tramadol HCl (Ultram) 100 mg PO Q6H PRN PRN Reason: Severe Pain (7-10) Vital Signs & Weight: Vital Signs Temp Pulse Pulse BP BP Pulse Ox 11/20/18 08:55 79 74 166/92 H 162/83 H 11/20/18 08:00 93 L 11/20/18 07:12 98.2 F 11/20/18 03:46 98.6 F Weight 178 lb 3.2 oz - Physical Exam General: alert & oriented x3 HEENT: mucus membranes moist Cardiac: regular rate and rhythm, S1/S2 Lungs: clear to auscultation, decreased breath sounds Abdomen: unremarkable Skin: clear Musculoskeletal: decreased range of motion - Labs Result Diagrams: 11/20/18 04:52 11/20/18 04:52 - Telemetry Sinus rhythms and dysrhythmias: sinus rhythm - Assessment/Plan Assessment/Plan: 1. CAD s/p CABG x 3 on 11/17/2018 with MANN-LAD, RSVG-ramus, and RSVG-PDA - stable; On BBlocker, ASA, Statin; 2. Ischemic CMY with EF 20-25% in 10/2018 3. hx of Syncope episode in 10/2018 4. Chronic Systolic HF - 5. S/p Cardiac arrhythmia - remains in SR; on Amiodarone 200mg TID since 2018; will titrate q2wks. Hx of ETOH abuse MAR reviewed Pt. seen and eval. by me. I agree with the A/P by the NEEDLE SETTER. Chest clear, RRR, no edema. Doing well s/p CABG.
[2018-11-20] MEDS ORDERED: Lisinopril 5 MG TAB PO SCH ×2 (13:00→13:30)
[2018-11-20 14:35] VITALS: BP 156/74
[2018-11-20] MEDS: Atorvastatin Calcium 20 MG TAB PO SCH (20:11)
[2018-11-21 03:41] VITALS: TEMP 98.7
--- NOTE | 2018-11-21 07:29 | DIS ---
DATE OF ADMISSION: 11/17/2018 DATE OF DISCHARGE: 11/21/2018 DIAGNOSES: 1. Coronary artery disease. 2. Congestive failure with severely depressed left ventricular ejection fraction. 3. Hypertension. 4. Dyslipidemia. PROCEDURES: Coronary artery bypass grafting x3; 1. Left internal mammary artery to left anterior descending. 2. Saphenous vein graft to ramus and patent ductus arteriosus. DESCRIPTION OF HOSPITAL STAY: Mr. Muñoz was electively admitted for coronary artery bypass grafting. He is about a month out from his initial presenting event, where he was found to have an ejection fraction of 15% to 20% on echocardiogram. He was medically treated, had improvement of his symptoms, and was brought into the hospital for elective bypass. Postoperatively, he has done well. He has had no rhythm disturbances. At the time of discharge, he is ambulatory, he is tolerating regular diet, having good bowel and bladder function. Incisions are clean. He has had some clear drainage from all of his leg incisions, which as he has diuresed has essentially stopped. DISCHARGE MEDICATIONS: Include; 1. Aspirin 325 mg daily. 2. Amiodarone [address] Pate. 3. Lipitor 40 mg at bedtime. 4. Coreg 3.125 mg b.i.d. 5. Lisinopril 5 mg daily. 6. Lasix 40 mg daily for 10 days. 7. Ultram. FOLLOWUP: Follow up is with me in 2 weeks, Dr. Pate in a month. Job ID: [id number]
[2018-11-21] MEDS: Carvedilol 3.125 MG TAB PO SCH (07:45)
[2018-11-21] MEDS: Amiodarone 200 MG TAB PO SCH (07:45)
[2018-11-21] MEDS: Furosemide 40 MG TAB PO SCH (07:45)
[2018-11-21] MEDS: Aspirin 325 MG TAB PO SCH (07:45)
[2018-11-21] MEDS: Potassium Chloride 10 MEQ TAB PO SCH (07:45)
[2018-11-21] MEDS ORDERED: Lisinopril 5 MG TAB PO SCH (09:00)
[2018-11-21] MEDS ORDERED: Lisinopril 2.5 MG TAB PO SCH (09:00)
--- NOTE | 2018-11-21 11:23 | PQF ---
CLINICAL DOCUMENTATION IMPROVEMENT CLARIFICATION FORM: ICD-10 Updated PLEASE DO AN ADDENDUM TO THE PROGRESS NOTE WITH ANY DOCUMENTATION UPDATES OR ADDITIONS AND CARRY THROUGH TO DC SUMMARY. THANK YOU. DATE: 11/21/2018 ATTN: Dr. Colon Please exercise your independent, professional judgment in responding to the clarification form. Clinical indicators are provided on the bottom of this form for your review Please check appropriate box(s): [ ] Acute blood loss anemia [ ] Post-op anemia related to acute blood loss [ ] Other diagnosis [ x ] Unable to determine For continuity of documentation, please document condition throughout progress notes and discharge summary. Thank You. CLINICAL INDICATORS - SIGNS / SYMPTOMS/ LABS are present in the medical record: 11/19(Chiquis) Reported a little light headedness 6.4 18.9 11/17/2018 @ 0640 11/18/2018 11/19/2018 LABS: Hemoglobin 15.1 9.0 6.4 10.1 RISKS: 11/17 Operative Note: CABG x3 TREATMENT: 11/19: (Vik) Pt with decreased HB; transfused. Nursing Note 11/19 1800: Pt receiving last unit (#3) of PRBC. Thank you, Ines (This form is maintained as a part of the permanent medical record) 2015 [employer] All Rights Reserved Ines George RN, BSN [email or web address] Office: [phone] [facility]
== END 2018-11-21 13:58 | disposition home or self-care (01) | DRG 236 ==
LOC: SURG A 05:56 → CCU 12:47 → EDSTATUS 12:59 → IMCU/EMU 11-19 18:16
PROVIDERS: ADMIT Thoracic Surgery (Cardiothoracic Vascular Surgery); ATTEND Thoracic Surgery (Cardiothoracic Vascular Surgery)
PROC: 02100Z9 Bypass Coronary Artery, One Artery from Left Internal Mammary, Open Approach (ICD-10-PCS; principal; 2018-11-17)
PROC: 021109W Bypass Coronary Artery, Two Arteries from Aorta with Autologous Venous Tissue, Open Approach (ICD-10-PCS; 2018-11-17)
PROC: 06BQ4ZZ Excision of Left Saphenous Vein, Percutaneous Endoscopic Approach (ICD-10-PCS; 2018-11-17)
PROC: 5A1221Z Performance of Cardiac Output, Continuous (ICD-10-PCS; 2018-11-17)
PROC: 30233N1 Transfusion of Nonautologous Red Blood Cells into Peripheral Vein, Percutaneous Approach (ICD-10-PCS; 2018-11-19)
DX: I25.10 Atherosclerotic heart disease of native coronary artery without angina pectoris (principal); I50.32 Chronic diastolic (congestive) heart failure; I11.0 Hypertensive heart disease with heart failure; E78.5 Hyperlipidemia, unspecified; I25.5 Ischemic cardiomyopathy; F10.10 Alcohol abuse, uncomplicated
CPT/HCPCS: 36415; 36416; 36430; 71045; 71260; 80048; 82805; 85025; 85610; 85730; 86850; 86900; 86901; 88184; 88307; 93005; 93010; 93798; 94002; J0670; J0690; J1100; J1642; J1644; J1815; J1885; J2001; J2150; J2250; J2370; J2440; J2704; J2720; J3010; J3370; J3475; J3480; J3490; J7070; P9016; P9045; Q9966; S0017; S0028

== ENCOUNTER 2020-10-24 14:20 | Inpatient (IN) | payer OTHER, MEDICARE, MEDICAID ==
[2020-10-24 15:05] LABS: Bacteria/HPF None Seen HPF (None Seen); Bilirubin Negative (Negative); Blood, Urine 3+ (Negative); Clarity Clear (Clear); Glucose, Urine (Dipstick) Normal (Negative); Ketone, Urine Negative (Negative); Leukocyte Negative Leu/uL (Negative); Nitrite Negative (Negative); Protein, Urine (Dipstick) 20 mg/dL (Neg-Trace); RBC/HPF Greater than 50 HPF (0-3); Specific Gravity, Urine 1.032 (1.002-1.036); Squamous Epithelial None Seen HPF (0-3); Urobilinogen Normal mg/dL (Less than 2); pH, Urine 5.5 (5.0-9.0)
[2020-10-24 15:07] LABS: Amphetamine Not Detected (NotDetected); Barbiturates Screen Not Detected (NotDetected); Benzodiazepine Screen Not Detected (NotDetected); Cocaine Metabolite Screen Not Detected (NotDetected); Methadone Not Detected (NotDetected); Methamphetamine Not Detected (NotDetected); Opiate Screen Not Detected (NotDetected); Oxycodone Screen Not Detected (NotDetected); Phencyclidine (PCP) Not Detected (NotDetected); THC/Cannabinoid Screen Not Detected (NotDetected); Tricyclic Screen Not Detected (NotDetected)
[2020-10-24 15:31] LABS: #Eosinphils 0.2 thou/uL (0.0-0.7); #Lymphocytes 1.2 thou/uL (1.20-3.40); #Monocytes 0.9 thou/uL (0.11-0.59); #Neutrophils 8.4 thou/uL (1.40-6.50); %Basophils 0.4 % (0.0-1.0); %Eosinophils 1.8 % (0.0-10.0); %Lymphocytes 11.4 % (21.0-51.0); %Monocytes 8.1 % (0.0-10.0); %Neutrophils 78.4 % (42.0-75.0); Hemoglobin 13.2 g/dL (14.0-18.0); Mean Corpuscular HGB CONC 33.1 g/dL (32.0-36.0); Mean Corpuscular Hemoglobin 30.4 pg (27.0-31.0); Mean Corpuscular Volume 91.6 fL (78.0-98.0); Mean Platelet Volume 7.1 fL (7.4-10.4); Platelet Count 264 thou/uL (130-400); RBC Distribution Width 13.8 % (11.5-14.5); Red Blood Cell (RBC) Count 4.36 mill/uL (4.70-6.10); White Blood Cell (WBC) Count 10.8 thou/uL (4.8-10.8)
[2020-10-24 15:44] LABS: INR-International Normal Ratio 1.1; Prothrombin Time 13.8 sec (12.0-14.7)
[2020-10-24 15:45] LABS: PTT 31.4 sec (22.9-36.1)
[2020-10-24 15:52] LABS: Acetaminophen Less than 6.0 mcg/mL (10.0-30.0); Alcohol Less than 10 mg/dL (Less than 10); Salicylate Less than 8.0 mg/dL (15.0-30.0)
[2020-10-24 15:55] LABS: ALT (SGPT) 12 U/L (8-55); AST (SGOT) 32 U/L (5-34); Albumin 3.5 g/dL (3.4-4.8); Alkaline Phosphatase 121 U/L (40-110); Anion Gap 13 mmol/L (10-20); BUN (Urea Nitrogen) 28 mg/dL (8.4-25.7); Bilirubin, Total 0.8 mg/dL (0.2-1.2); Calc. Creatinine Clearance 0 mL/min (70-130); Calcium 8.5 mg/dL (7.8-10.44); Carbon Dioxide 22 mmol/L (23-31); Chloride 105 mmol/L (98-107); Glucose 115 mg/dL (83-110); Potassium 4.4 mmol/L (3.5-5.1); Protein, Total 6.5 g/dL (5.8-8.1); Sodium 136 mmol/L (136-145)
[2020-10-24] MEDS ORDERED: cefTRIAXone\\ROCEPHIN 2 GM VIAL ONE (16:10)
[2020-10-24] MEDS ORDERED: Azithromycin 500 MG VIAL ONE (16:10)
[2020-10-24 16:20] LABS: CKMB 9.3 ng/mL (0-6.6)
[2020-10-24 16:36] LABS: SARS-CoV-2 NAA Rapid Test Not Detected (NotDetected)
[2020-10-24 18:48] LABS: Lactic Acid 1.9 mmol/L (0.5-2.2)
[2020-10-24] MEDS ORDERED: Bisacodyl 5 MG TAB PO PRN (19:25)
[2020-10-24] MEDS ORDERED: Acetaminophen 325 MG TAB PO PRN (19:25)
[2020-10-24] MEDS ORDERED: Ondansetron PF 4 MG/2 ML Vial IVP PRN (19:25)
[2020-10-24] MEDS ORDERED: Senokot S 8.6-50 MG TAB PO PRN (19:25)
[2020-10-24] MEDS ORDERED: HYDROcodone/Acetaminophen 5/325 mg Tablet PO PRN (19:25)
[2020-10-24] MEDS ORDERED: HYDROcodone/Acetaminophen 7.5/325 mg Tablet PO PRN (19:25)
[2020-10-24] MEDS ORDERED: Enoxaparin Sodium 40 MG/0.4 ML SYRINGE SC SCH (19:30)
[2020-10-24] MEDS: Sodium Chloride 0.9% 1,000 ML IV SCH (20:43)
[2020-10-24] MEDS: Famotidine/PF 20 mg/2ml Vial SLOW IVP SCH (20:44)
[2020-10-24 21:44] VITALS: BMI 25.7
[2020-10-25 06:13] LABS: #Eosinphils 0.4 thou/uL (0.0-0.7); #Lymphocytes 1.4 thou/uL (1.20-3.40); #Monocytes 0.6 thou/uL (0.11-0.59); #Neutrophils 5.1 thou/uL (1.40-6.50); %Basophils 0.4 % (0.0-1.0); %Eosinophils 5.3 % (0.0-10.0); %Lymphocytes 19.1 % (21.0-51.0); %Monocytes 7.3 % (0.0-10.0); %Neutrophils 67.8 % (42.0-75.0); Hemoglobin 12.5 g/dL (14.0-18.0); Mean Corpuscular HGB CONC 32.8 g/dL (32.0-36.0); Mean Corpuscular Volume 91.4 fL (78.0-98.0); Mean Platelet Volume 6.9 fL (7.4-10.4); Platelet Count 234 thou/uL (130-400); RBC Distribution Width 13.8 % (11.5-14.5); Red Blood Cell (RBC) Count 4.17 mill/uL (4.70-6.10); White Blood Cell (WBC) Count 7.5 thou/uL (4.8-10.8)
[2020-10-25 06:36] LABS: ALT (SGPT) 13 U/L (8-55); AST (SGOT) 26 U/L (5-34); Albumin 3.3 g/dL (3.4-4.8); Alkaline Phosphatase 112 U/L (40-110); Anion Gap 9 mmol/L (10-20); BUN (Urea Nitrogen) 19 mg/dL (8.4-25.7); Bilirubin, Total 0.7 mg/dL (0.2-1.2); Calc. Creatinine Clearance 92 mL/min (70-130); Calcium 8.1 mg/dL (7.8-10.44); Carbon Dioxide 23 mmol/L (23-31); Chloride 110 mmol/L (98-107); Globulin 2.7 g/dL (2.4-3.5); Glucose 111 mg/dL (83-110); Sodium 138 mmol/L (136-145)
[2020-10-25] MEDS: Sodium Chloride 0.9% 1,000 ML IV SCH ×3 (08:31→15:21)
[2020-10-25] MEDS: Enoxaparin Sodium 40 MG/0.4 ML SYRINGE SC SCH (08:31)
[2020-10-25] MEDS: Multivit, Therapeutic 1 TAB PO SCH (08:31)
[2020-10-25] MEDS: Famotidine/PF 20 mg/2ml Vial SLOW IVP SCH ×2 (08:32→20:53)
[2020-10-25] MEDS: Folic Acid 1 MG TAB PO SCH (08:32)
[2020-10-25 09:11] LABS: Troponin I 0.045 ng/mL (< 0.028)
[2020-10-25] MEDS: cefTRIAXone\\ROCEPHIN 1 GM in Sodium Chloride 0.9% 100 ML IVPB SCH (18:07)
[2020-10-26 04:33] LABS: #Basophils 0.1 thou/uL (0.0-0.2); #Eosinphils 0.3 thou/uL (0.0-0.7); #Lymphocytes 1.2 thou/uL (1.20-3.40); #Monocytes 0.6 thou/uL (0.11-0.59); #Neutrophils 5.6 thou/uL (1.40-6.50); %Basophils 0.8 % (0.0-1.0); %Eosinophils 3.9 % (0.0-10.0); %Lymphocytes 16.1 % (21.0-51.0); %Monocytes 7.6 % (0.0-10.0); %Neutrophils 71.7 % (42.0-75.0); Hemoglobin 12.3 g/dL (14.0-18.0); Mean Corpuscular Hemoglobin 31.3 pg (27.0-31.0); Mean Corpuscular Volume 92.2 fL (78.0-98.0); Mean Platelet Volume 6.9 fL (7.4-10.4); Platelet Count 227 thou/uL (130-400); RBC Distribution Width 13.8 % (11.5-14.5); Red Blood Cell (RBC) Count 3.92 mill/uL (4.70-6.10); White Blood Cell (WBC) Count 7.7 thou/uL (4.8-10.8)
[2020-10-26 04:58] LABS: ALT (SGPT) 14 U/L (8-55); AST (SGOT) 22 U/L (5-34); Albumin 3.4 g/dL (3.4-4.8); Alkaline Phosphatase 111 U/L (40-110); Anion Gap 12 mmol/L (10-20); BUN (Urea Nitrogen) 14 mg/dL (8.4-25.7); Bilirubin, Total 0.7 mg/dL (0.2-1.2); CK (CPK) 478 U/L (30-200); Calc. Creatinine Clearance 94 mL/min (70-130); Calcium 7.9 mg/dL (7.8-10.44); Carbon Dioxide 21 mmol/L (23-31); Chloride 108 mmol/L (98-107); Globulin 2.7 g/dL (2.4-3.5); Glucose 113 mg/dL (83-110); Magnesium 2.2 mg/dL (1.6-2.6); Potassium 3.8 mmol/L (3.5-5.1); Protein, Total 6.1 g/dL (5.8-8.1); Sodium 137 mmol/L (136-145)
[2020-10-26] MEDS: Folic Acid 1 MG TAB PO SCH (09:26)
[2020-10-26] MEDS: Enoxaparin Sodium 40 MG/0.4 ML SYRINGE SC SCH (09:27)
[2020-10-26] MEDS: Multivit, Therapeutic 1 TAB PO SCH (09:27)
[2020-10-26] MEDS: Famotidine/PF 20 mg/2ml Vial SLOW IVP SCH ×2 (09:27→21:25)
[2020-10-26] MEDS ORDERED: Furosemide 40 MG/4 ML VIAL SLOW IVP SCH ×2 (10:15→15:00)
[2020-10-26] MEDS ORDERED: Carvedilol 6.25 MG TAB PO SCH (12:00)
[2020-10-26] MEDS ORDERED: Potassium Chloride 20 MEQ TAB PO SCH (14:45)
[2020-10-26] MEDS: cefTRIAXone\\ROCEPHIN 1 GM in Sodium Chloride 0.9% 100 ML IVPB SCH (17:25)
[2020-10-26] MEDS: Carvedilol 6.25 MG TAB PO SCH (17:25)
[2020-10-26] MEDS: Budesonide 0.5 MG/2 ML NEB NEB SCH (19:11)
[2020-10-26] MEDS: guaiFENesin ER 600 MG TAB PO SCH (21:24)
[2020-10-27] MEDS: Furosemide 40 MG/4 ML VIAL SLOW IVP SCH ×2 (05:23→14:30)
[2020-10-27 05:44] LABS: #Eosinphils 0.2 thou/uL (0.0-0.7); #Lymphocytes 1.2 thou/uL (1.20-3.40); #Monocytes 0.8 thou/uL (0.11-0.59); #Neutrophils 5.5 thou/uL (1.40-6.50); %Basophils 0.4 % (0.0-1.0); %Eosinophils 3.1 % (0.0-10.0); %Lymphocytes 15.7 % (21.0-51.0); %Neutrophils 70.8 % (42.0-75.0); Mean Corpuscular HGB CONC 33.4 g/dL (32.0-36.0); Mean Corpuscular Hemoglobin 30.5 pg (27.0-31.0); Mean Corpuscular Volume 91.4 fL (78.0-98.0); Mean Platelet Volume 7.3 fL (7.4-10.4); Platelet Count 239 thou/uL (130-400); Red Blood Cell (RBC) Count 4.26 mill/uL (4.70-6.10); White Blood Cell (WBC) Count 7.8 thou/uL (4.8-10.8)
[2020-10-27 06:07] LABS: Anion Gap 14 mmol/L (10-20); BUN (Urea Nitrogen) 12 mg/dL (8.4-25.7); CK (CPK) 358 U/L (30-200); Calc. Creatinine Clearance 90 mL/min (70-130); Carbon Dioxide 20 mmol/L (23-31); Chloride 105 mmol/L (98-107); Glucose 106 mg/dL (83-110); Magnesium 2.1 mg/dL (1.6-2.6); Potassium 3.9 mmol/L (3.5-5.1); Sodium 135 mmol/L (136-145)
[2020-10-27] MEDS: Multivit, Therapeutic 1 TAB PO SCH (08:50)
[2020-10-27] MEDS: guaiFENesin ER 600 MG TAB PO SCH ×2 (08:50→20:17)
[2020-10-27] MEDS: Carvedilol 6.25 MG TAB PO SCH ×2 (08:50→17:09)
[2020-10-27] MEDS: Folic Acid 1 MG TAB PO SCH (08:50)
[2020-10-27] MEDS: Famotidine/PF 20 mg/2ml Vial SLOW IVP SCH (08:54)
[2020-10-27] MEDS: Enoxaparin Sodium 40 MG/0.4 ML SYRINGE SC SCH (09:34)
[2020-10-27] MEDS: Budesonide 0.5 MG/2 ML NEB NEB SCH ×2 (10:14→19:00)
[2020-10-27] MEDS: Famotidine 20 MG TAB PO SCH (20:17)
[2020-10-27] MEDS ORDERED: Sodium Chloride 0.9% 500 ML IVPB SCH (20:30)
[2020-10-27] MEDS ORDERED: Famotidine 20 MG TAB PO SCH (21:00)
[2020-10-28 04:45] LABS: #Eosinphils 0.2 thou/uL (0.0-0.7); #Lymphocytes 1.6 thou/uL (1.20-3.40); #Monocytes 0.9 thou/uL (0.11-0.59); #Neutrophils 5.8 thou/uL (1.40-6.50); %Basophils 0.2 % (0.0-1.0); %Eosinophils 2.9 % (0.0-10.0); %Lymphocytes 18.4 % (21.0-51.0); %Monocytes 10.3 % (0.0-10.0); %Neutrophils 68.2 % (42.0-75.0); Hemoglobin 13.3 g/dL (14.0-18.0); Mean Corpuscular HGB CONC 33.7 g/dL (32.0-36.0); Mean Corpuscular Volume 91.8 fL (78.0-98.0); Mean Platelet Volume 7.3 fL (7.4-10.4); Platelet Count 251 thou/uL (130-400); RBC Distribution Width 14.5 % (11.5-14.5); Red Blood Cell (RBC) Count 4.29 mill/uL (4.70-6.10); White Blood Cell (WBC) Count 8.5 thou/uL (4.8-10.8)
[2020-10-28 05:10] LABS: Anion Gap 15 mmol/L (10-20); BUN (Urea Nitrogen) 16 mg/dL (8.4-25.7); Calc. Creatinine Clearance 71 mL/min (70-130); Calcium 8.2 mg/dL (7.8-10.44); Carbon Dioxide 23 mmol/L (23-31); Chloride 103 mmol/L (98-107); Glucose 105 mg/dL (83-110); Potassium 3.6 mmol/L (3.5-5.1); Sodium 137 mmol/L (136-145)
[2020-10-28] MEDS: Furosemide 40 MG/4 ML VIAL SLOW IVP SCH ×2 (06:26→14:21)
[2020-10-28] MEDS: Budesonide 0.5 MG/2 ML NEB NEB SCH ×2 (08:15→19:33)
[2020-10-28] MEDS: Folic Acid 1 MG TAB PO SCH (08:41)
[2020-10-28] MEDS: Potassium Chloride 20 MEQ TAB PO SCH (08:41)
[2020-10-28] MEDS: Carvedilol 6.25 MG TAB PO SCH ×2 (08:41→16:53)
[2020-10-28] MEDS: Famotidine 20 MG TAB PO SCH ×2 (08:41→20:27)
[2020-10-28] MEDS: guaiFENesin ER 600 MG TAB PO SCH ×2 (08:41→20:28)
[2020-10-28] MEDS: Multivit, Therapeutic 1 TAB PO SCH (08:44)
[2020-10-28] MEDS: Enoxaparin Sodium 40 MG/0.4 ML SYRINGE SC SCH (08:44)
[2020-10-28 12:51] LABS: Cardiac Risk 4.9 (Less than 4.5)
[2020-10-29] MEDS: Furosemide 40 MG/4 ML VIAL SLOW IVP SCH ×2 (06:23→15:27)
[2020-10-29] MEDS: Carvedilol 6.25 MG TAB PO SCH ×2 (08:58→17:06)
[2020-10-29] MEDS: Enoxaparin Sodium 40 MG/0.4 ML SYRINGE SC SCH (08:58)
[2020-10-29] MEDS: Folic Acid 1 MG TAB PO SCH (08:58)
[2020-10-29] MEDS: Potassium Chloride 20 MEQ TAB PO SCH (08:58)
[2020-10-29] MEDS: Aspirin 81 mg Enteric Coated Tablet PO SCH (08:58)
[2020-10-29] MEDS: Lisinopril 5 MG TAB PO SCH (08:59)
[2020-10-29] MEDS: Famotidine 20 MG TAB PO SCH ×2 (08:59→20:00)
[2020-10-29] MEDS: guaiFENesin ER 600 MG TAB PO SCH ×2 (08:59→20:00)
[2020-10-29] MEDS: Multivit, Therapeutic 1 TAB PO SCH (08:59)
[2020-10-29] MEDS: Budesonide 0.5 MG/2 ML NEB NEB SCH ×2 (11:49→17:07)
[2020-10-30] MEDS: Furosemide 40 MG/4 ML VIAL SLOW IVP SCH ×2 (06:32→16:17)
[2020-10-30] MEDS: Folic Acid 1 MG TAB PO SCH (09:24)
[2020-10-30] MEDS: Potassium Chloride 20 MEQ TAB PO SCH (09:24)
[2020-10-30] MEDS: Multivit, Therapeutic 1 TAB PO SCH (09:24)
[2020-10-30] MEDS: Aspirin 81 mg Enteric Coated Tablet PO SCH (09:24)
[2020-10-30] MEDS: guaiFENesin ER 600 MG TAB PO SCH ×2 (09:24→21:31)
[2020-10-30] MEDS: Lisinopril 5 MG TAB PO SCH (09:25)
[2020-10-30] MEDS: Carvedilol 6.25 MG TAB PO SCH ×2 (09:25→16:17)
[2020-10-30] MEDS: Famotidine 20 MG TAB PO SCH ×2 (09:25→21:31)
[2020-10-30] MEDS: Budesonide 0.5 MG/2 ML NEB NEB SCH ×2 (09:29→19:00)
[2020-10-30] MEDS: Enoxaparin Sodium 40 MG/0.4 ML SYRINGE SC SCH (10:30)
[2020-10-31] MEDS: Furosemide 40 MG/4 ML VIAL SLOW IVP SCH ×2 (06:20→17:20)
[2020-10-31] MEDS: Budesonide 0.5 MG/2 ML NEB NEB SCH ×2 (06:58→18:22)
[2020-10-31] MEDS: Folic Acid 1 MG TAB PO SCH (09:29)
[2020-10-31] MEDS: Aspirin 81 mg Enteric Coated Tablet PO SCH (09:29)
[2020-10-31] MEDS: Lisinopril 5 MG TAB PO SCH (09:29)
[2020-10-31] MEDS: guaiFENesin ER 600 MG TAB PO SCH ×2 (09:30→19:57)
[2020-10-31] MEDS: Carvedilol 6.25 MG TAB PO SCH ×2 (09:31→17:21)
[2020-10-31] MEDS: Multivit, Therapeutic 1 TAB PO SCH (09:32)
[2020-10-31] MEDS: Famotidine 20 MG TAB PO SCH ×2 (09:32→19:56)
[2020-10-31] MEDS: Potassium Chloride 20 MEQ TAB PO SCH (09:33)
[2020-10-31] MEDS: Enoxaparin Sodium 40 MG/0.4 ML SYRINGE SC SCH (09:34)
[2020-11-01] MEDS: Lisinopril 5 MG TAB PO SCH (09:28)
[2020-11-01] MEDS: Folic Acid 1 MG TAB PO SCH (09:29)
[2020-11-01] MEDS: Furosemide 40 MG TAB PO SCH (09:30)
[2020-11-01] MEDS: Carvedilol 6.25 MG TAB PO SCH ×2 (09:36→17:37)
[2020-11-01] MEDS: Potassium Chloride 20 MEQ TAB PO SCH (09:36)
[2020-11-01] MEDS: Multivit, Therapeutic 1 TAB PO SCH (09:37)
[2020-11-01] MEDS: guaiFENesin ER 600 MG TAB PO SCH ×2 (09:37→21:07)
[2020-11-01] MEDS: Aspirin 81 mg Enteric Coated Tablet PO SCH (09:37)
[2020-11-01] MEDS: Enoxaparin Sodium 40 MG/0.4 ML SYRINGE SC SCH (09:38)
[2020-11-01] MEDS: Famotidine 20 MG TAB PO SCH ×2 (09:38→21:07)
[2020-11-01] MEDS: Budesonide 0.5 MG/2 ML NEB NEB SCH ×2 (12:53→19:37)
[2020-11-02] MEDS: Furosemide 40 MG TAB PO SCH (06:19)
[2020-11-02 08:05] LABS: Anion Gap 12 mmol/L (10-20); BUN (Urea Nitrogen) 19 mg/dL (8.4-25.7); Calc. Creatinine Clearance 74 mL/min (70-130); Calcium 9.1 mg/dL (7.8-10.44); Carbon Dioxide 26 mmol/L (23-31); Chloride 100 mmol/L (98-107); Glucose 105 mg/dL (83-110); Potassium 4.2 mmol/L (3.5-5.1); Sodium 134 mmol/L (136-145)
[2020-11-02] MEDS: Potassium Chloride 20 MEQ TAB PO SCH (09:43)
[2020-11-02] MEDS: Lisinopril 5 MG TAB PO SCH (09:44)
[2020-11-02] MEDS: Folic Acid 1 MG TAB PO SCH (09:44)
[2020-11-02] MEDS: Aspirin 81 mg Enteric Coated Tablet PO SCH (09:44)
[2020-11-02] MEDS: Carvedilol 6.25 MG TAB PO SCH ×2 (09:44→16:52)
[2020-11-02] MEDS: Multivit, Therapeutic 1 TAB PO SCH (09:44)
[2020-11-02] MEDS: Famotidine 20 MG TAB PO SCH ×2 (09:45→21:44)
[2020-11-02] MEDS: guaiFENesin ER 600 MG TAB PO SCH ×3 (09:45→21:44)
[2020-11-02] MEDS: Enoxaparin Sodium 40 MG/0.4 ML SYRINGE SC SCH (09:45)
[2020-11-02] MEDS: Budesonide 0.5 MG/2 ML NEB NEB SCH ×2 (10:43→18:33)
[2020-11-03] MEDS: Budesonide 0.5 MG/2 ML NEB NEB SCH ×2 (06:05→21:37)
[2020-11-03] MEDS: Furosemide 40 MG TAB PO SCH (06:25)
[2020-11-03] MEDS: Enoxaparin Sodium 40 MG/0.4 ML SYRINGE SC SCH (09:27)
[2020-11-03] MEDS: Folic Acid 1 MG TAB PO SCH (09:28)
[2020-11-03] MEDS: Potassium Chloride 20 MEQ TAB PO SCH (09:28)
[2020-11-03] MEDS: Aspirin 81 mg Enteric Coated Tablet PO SCH (09:30)
[2020-11-03] MEDS: Carvedilol 6.25 MG TAB PO SCH ×2 (09:30→17:31)
[2020-11-03] MEDS: Famotidine 20 MG TAB PO SCH ×2 (09:30→20:30)
[2020-11-03] MEDS: Multivit, Therapeutic 1 TAB PO SCH (09:30)
[2020-11-03] MEDS: Lisinopril 5 MG TAB PO SCH (09:31)
[2020-11-03] MEDS: guaiFENesin ER 600 MG TAB PO SCH ×2 (09:35→20:30)
[2020-11-04] MEDS: Furosemide 40 MG TAB PO SCH (06:31)
[2020-11-04] MEDS: Budesonide 0.5 MG/2 ML NEB NEB SCH (07:05)
[2020-11-04 07:50] VITALS: TEMP 97.7
[2020-11-04] MEDS: guaiFENesin ER 600 MG TAB PO SCH (08:25)
[2020-11-04] MEDS: Famotidine 20 MG TAB PO SCH (08:25)
[2020-11-04] MEDS: Folic Acid 1 MG TAB PO SCH (08:25)
[2020-11-04] MEDS: Carvedilol 6.25 MG TAB PO SCH (08:26)
[2020-11-04] MEDS: Multivit, Therapeutic 1 TAB PO SCH (08:26)
[2020-11-04] MEDS: Aspirin 81 mg Enteric Coated Tablet PO SCH (08:26)
[2020-11-04] MEDS: Potassium Chloride 20 MEQ TAB PO SCH (08:26)
[2020-11-04] MEDS: Enoxaparin Sodium 40 MG/0.4 ML SYRINGE SC SCH (08:27)
[2020-11-04 08:28] VITALS: BP 107/70
[2020-11-04] MEDS: Lisinopril 5 MG TAB PO SCH (08:28)
== END 2020-11-04 10:00 | DRG 564 ==
LOC: ERS 14:20 → 2NO 17:28 → SURG A 10-30 14:39
PROVIDERS: ADMIT Family Medicine; ATTEND Family Medicine
PROC: 3E0H76Z Introduction of Nutritional Substance into Lower GI, Via Natural or Artificial Opening (ICD-10-PCS; principal; 2020-10-25)
DX: T79.6XXA Traumatic ischemia of muscle, initial encounter (principal); G93.41 Metabolic encephalopathy; A41.9 Sepsis, unspecified organism; I50.23 Acute on chronic systolic (congestive) heart failure; N17.9 Acute kidney failure, unspecified; E87.2 Acidosis; R64 Cachexia; H33.21 Serous retinal detachment, right eye; I47.2 Ventricular tachycardia; I47.1 Supraventricular tachycardia; N39.0 Urinary tract infection, site not specified; I42.0 Dilated cardiomyopathy; Z20.822 Contact with and (suspected) exposure to COVID-19; R62.7 Adult failure to thrive; S00.03XA Contusion of scalp, initial encounter; H54.40 Blindness, one eye, unspecified eye; I08.1 Rheumatic disorders of both mitral and tricuspid valves; E86.9 Volume depletion, unspecified; I25.5 Ischemic cardiomyopathy; I11.0 Hypertensive heart disease with heart failure; W01.0XXA Fall on same level from slipping, tripping and stumbling without subsequent striking against object, initial encounter; I95.9 Hypotension, unspecified; Z68.24 Body mass index [BMI] 24.0-24.9, adult; Z87.891 Personal history of nicotine dependence; Z95.1 Presence of aortocoronary bypass graft; Z91.19 Patient's noncompliance with other medical treatment and regimen
CPT/HCPCS: 36415; 36416; 70450; 71045; 72125; 80048; 80053; 80061; 80306; 80307; 81003; 81015; 82550; 82553; 83605; 83735; 83880; 84134; 84484; 85025; 85610; 85730; 87040; 87086; 93005; 93306; 94640; J0456; J0696; J1650; J1940; J3490; J7030; J7050; J7620; J7626; S0028; U0002

== ENCOUNTER 2023-02-15 09:50 | Inpatient (IN) | payer MEDICAID, MEDICARE ==
[2023-02-15] MEDS ORDERED: Boostrix 0.5 ML (Tdap) VIAL (>/=7 yrs of age) ONE (10:02)
[2023-02-15] MEDS ORDERED: Ondansetron PF 4 MG/2 ML Vial ONE (10:02)
[2023-02-15] MEDS ORDERED: fentaNYL 50 mcg/mL 1 mL Vial ONE (10:02)
[2023-02-15 10:16] LABS: #Eosinphils 0.1 thou/uL (0.0-0.7); #Monocytes 0.8 thou/uL (0.11-0.59); %Basophils 0.2 % (0.0-1.0); %Eosinophils 1.1 % (0.0-10.0); %Monocytes 7.7 % (0.0-10.0); %Neutrophils 81.8 % (42.0-75.0); Hematocrit 42.6 % (42.0-52.0); Hemoglobin 14.4 g/dL (14.0-18.0); Mean Corpuscular HGB CONC 33.8 g/dL (32.0-36.0); Mean Corpuscular Hemoglobin 30.8 pg (27.0-31.0); Mean Platelet Volume 10.9 fL (7.4-10.4); Platelet Count 154 10x3/uL (130-400); Red Blood Cell (RBC) Count 4.68 mill/uL (4.70-6.10); White Blood Cell (WBC) Count 9.8 10x3/uL (4.8-10.8)
[2023-02-15 10:33] LABS: Magnesium 2.5 mg/dL (1.6-2.6)
[2023-02-15 10:41] LABS: ALT (SGPT) 14 U/L (8-55); AST (SGOT) 22 U/L (5-34); Albumin 4.1 g/dL (3.4-4.8); Alkaline Phosphatase 69 U/L (40-110); Anion Gap 12 mmol/L (10-20); BUN (Urea Nitrogen) 20 mg/dL (8.4-25.7); Bilirubin, Total 1.7 mg/dL (0.2-1.2); CK (CPK) 509 U/L (30-200); Calc. Creatinine Clearance 0 mL/min (70-130); Calcium 8.9 mg/dL (7.8-10.44); Carbon Dioxide 25 mmol/L (23-31); Chloride 104 mmol/L (98-107); Estimated GFR 89; Globulin 2.9 g/dL (2.4-3.5); Glucose 118 mg/dL (83-110); Potassium 3.7 mmol/L (3.5-5.1); Sodium 137 mmol/L (136-145)
[2023-02-15 10:46] LABS: Troponin I 0.023 ng/mL (< 0.028)
[2023-02-15] MEDS ORDERED: traMADol HCl 50 MG TAB PO PRN (11:42)
[2023-02-15] MEDS ORDERED: Cyclobenzaprine 10 MG TAB PO PRN (11:42)
[2023-02-15] MEDS ORDERED: Dextrose 50% Abboject 50 ML SYRINGE SLOW IVP PRN (11:43)
[2023-02-15] MEDS ORDERED: Glucagon 1 MG/ML KIT IM PRN (11:43)
[2023-02-15] MEDS ORDERED: Ipratropium/Albuterol 3 ML NEB NEB PRN (11:43)
[2023-02-15] MEDS ORDERED: Morphine 2 MG/ML VIAL SLOW IVP PRN (11:43)
[2023-02-15] MEDS ORDERED: Dextrose 5% in Water 1,000 ML IV PRN (11:43)
[2023-02-15] MEDS ORDERED: Ondansetron PF 4 MG/2 ML Vial IVP PRN (11:43)
[2023-02-15] MEDS ORDERED: CEFAZOLIN 2 GM in Sodium Chloride 0.9% 100 ML IVPB SCH (12:30)
[2023-02-15] MEDS: Lactulose 20 GM (30 mL) UDCUP PO SCH (16:24)
[2023-02-15] MEDS: traMADol HCl 50 MG TAB PO SCH (16:24)
[2023-02-15 18:02] VITALS: BMI 21.0
[2023-02-15] MEDS: Famotidine/PF 20 mg/2ml Vial SLOW IVP SCH (21:52)
[2023-02-15] MEDS: Senokot S 8.6-50 MG TAB PO SCH (21:52)
[2023-02-15] MEDS: Gabapentin 100 MG CAP PO SCH (21:52)
[2023-02-16 06:08] LABS: #Eosinphils 0.6 thou/uL (0.0-0.7); #Monocytes 0.7 thou/uL (0.11-0.59); #Neutrophils 4.8 thou/uL (1.40-6.50); %Basophils 0.5 % (0.0-1.0); %Eosinophils 7.3 % (0.0-10.0); %Lymphocytes 18.9 % (21.0-51.0); %Monocytes 9.1 % (0.0-10.0); %Neutrophils 64.1 % (42.0-75.0); Hematocrit 35.5 % (42.0-52.0); Hemoglobin 11.8 g/dL (14.0-18.0); Mean Corpuscular HGB CONC 33.2 g/dL (32.0-36.0); Mean Corpuscular Hemoglobin 30.7 pg (27.0-31.0); Mean Corpuscular Volume 92.4 fl (78.0-98.0); Mean Platelet Volume 10.8 fL (7.4-10.4); RBC Distribution Width 12.9 % (11.5-14.5); Red Blood Cell (RBC) Count 3.84 mill/uL (4.70-6.10); White Blood Cell (WBC) Count 7.5 10x3/uL (4.8-10.8)
[2023-02-16 06:12] LABS: Bacteria/HPF None Seen HPF (None Seen); Bilirubin Negative (Negative); Blood, Urine Negative (Negative); CAUTI Indications for Culture Alt mental st,lethar; Clarity Clear (Clear); Glucose, Urine (Dipstick) Normal (Negative); Ketone, Urine 20 mg/dL (Negative); Leukocyte Negative Leu/uL (Negative); Nitrite Negative (Negative); Protein, Urine (Dipstick) 30 mg/dL (Neg-Trace); Specific Gravity, Urine 1.034 (1.002-1.036); Squamous Epithelial None Seen HPF (0-3); pH, Urine 5.5 (5.0-9.0)
[2023-02-16 06:15] LABS: Urine Culture Reflex No No
[2023-02-16 06:24] LABS: INR-International Normal Ratio 1.1; Prothrombin Time 14.8 sec (12.0-14.7)
[2023-02-16 06:25] LABS: PTT 34.5 sec (22.9-36.1)
[2023-02-16 06:30] LABS: Anion Gap 12 mmol/L (10-20); BUN (Urea Nitrogen) 18 mg/dL (8.4-25.7); Calc. Creatinine Clearance 90 mL/min (70-130); Calcium 8.2 mg/dL (7.8-10.44); Carbon Dioxide 23 mmol/L (23-31); Chloride 107 mmol/L (98-107); Estimated GFR 94; Glucose 88 mg/dL (83-110); Sodium 138 mmol/L (136-145)
[2023-02-16 06:41] LABS: Platelet Count 126 10x3/uL (130-400)
[2023-02-16] MEDS: Polyethylene Glycol 3350 17 GM Packet PO SCH (08:31)
[2023-02-16] MEDS ORDERED: Rocuronium Bromide 10 MG/ML (10ML VIAL) ONE (12:20)
[2023-02-16] MEDS ORDERED: Ondansetron PF 4 MG/2 ML Vial ONE (12:20)
[2023-02-16] MEDS ORDERED: Lidocaine 2% PF 5 ML VIAL ONE (12:20)
[2023-02-16] MEDS ORDERED: PHENYLEPHRINE-NS 100 MCG/ML 10 ML SYRINGE ONE (12:20)
[2023-02-16] MEDS ORDERED: fentaNYL PF 100 MCG/2 ML SYRINGE ONE (12:20)
[2023-02-16] MEDS ORDERED: PROPOFOL 0 ML ONE (12:20)
[2023-02-16] MEDS ORDERED: Dexamethasone 20 MG/5 ML VIAL ONE (12:20)
[2023-02-16] MEDS: Hydrocortisone Sod Succ/PF 100 mg/2 ml Vial IVP SCH ×2 (12:41→17:35)
[2023-02-16] MEDS: Albumin 5% 12.5 GM (250 mL) BOT IVPB SCH (12:47)
[2023-02-17] MEDS: Mirtazapine 30 MG Soltab PO SCH (10:31)
[2023-02-17] MEDS ORDERED: Ketamine In 0.9 % NaCl 50 MG/5 ML SYRINGE ONE (15:11)
[2023-02-17] MEDS ORDERED: Etomidate 40 MG (20 mL) VIAL ONE (15:11)
[2023-02-17] MEDS ORDERED: Lidocaine 1% PF 5 ML VIAL ONE (15:16)
[2023-02-17] MEDS ORDERED: Rocuronium Bromide 10 MG/ML (10ML VIAL) ONE ×2 (15:16→15:40)
[2023-02-17] MEDS ORDERED: CEFAZOLIN 2 GM VIAL ONE (15:30)
[2023-02-17] MEDS ORDERED: Sodium Chloride 0.9% 100 ML ONE (15:31)
[2023-02-17] MEDS ORDERED: Ondansetron PF 4 MG/2 ML Vial ONE (15:47)
[2023-02-17] MEDS ORDERED: Dexamethasone 4 mg/ml Vial ONE (15:47)
[2023-02-17] MEDS ORDERED: fentaNYL PF 100 MCG/2 ML SYRINGE ONE (15:53)
[2023-02-17] MEDS ORDERED: PHENYLEPHRINE-NS 100 MCG/ML 10 ML SYRINGE ONE (15:59)
[2023-02-17] MEDS ORDERED: SUGAMMADEX SODIUM 200 MG/2 ML VIAL ONE (16:45)
[2023-02-17] MEDS ORDERED: Ondansetron HCl/PF 4 MG/2 ML Vial IVP PRN (17:09)
[2023-02-17] MEDS ORDERED: Morphine Sulfate 2 MG/ML SYRINGE SLOW IVP PRN (17:09)
[2023-02-17] MEDS: Hydrocortisone Sod Succ/PF 100 mg/2 ml Vial IVP SCH (18:40)
[2023-02-17] MEDS: Carvedilol 3.125 MG TAB PO SCH (20:30)
[2023-02-17] MEDS: Atorvastatin Calcium 40 MG TAB PO SCH (20:34)
[2023-02-17] MEDS: CEFAZOLIN 2 GM in Sodium Chloride 0.9% 100 ML IVPB SCH (21:13)
[2023-02-18 05:51] LABS: #Monocytes 0.7 thou/uL (0.11-0.59); #Neutrophils 8.3 thou/uL (1.40-6.50); %Basophils 0.1 % (0.0-1.0); %Lymphocytes 4.8 % (21.0-51.0); %Monocytes 7.3 % (0.0-10.0); %Neutrophils 87.5 % (42.0-75.0); Hematocrit 35.2 % (42.0-52.0); Hemoglobin 11.9 g/dL (14.0-18.0); Mean Corpuscular HGB CONC 33.8 g/dL (32.0-36.0); Mean Corpuscular Hemoglobin 30.3 pg (27.0-31.0); Mean Corpuscular Volume 89.6 fl (78.0-98.0); Mean Platelet Volume 11.3 fL (7.4-10.4); Platelet Count 158 10x3/uL (130-400); RBC Distribution Width 12.6 % (11.5-14.5); Red Blood Cell (RBC) Count 3.93 mill/uL (4.70-6.10); White Blood Cell (WBC) Count 9.5 10x3/uL (4.8-10.8)
[2023-02-18 06:29] LABS: Anion Gap 13 mmol/L (10-20); BUN (Urea Nitrogen) 15 mg/dL (8.4-25.7); Calc. Creatinine Clearance 95 mL/min (70-130); Calcium 8.1 mg/dL (7.8-10.44); Carbon Dioxide 23 mmol/L (23-31); Chloride 107 mmol/L (98-107); Estimated GFR 95; Glucose 137 mg/dL (83-110); Potassium 4.2 mmol/L (3.5-5.1); Sodium 139 mmol/L (136-145)
[2023-02-18] MEDS: Lisinopril 5 MG TAB PO SCH (09:06)
[2023-02-18] MEDS: Aspirin 81 mg Enteric Coated Tablet PO SCH (19:38)
[2023-02-19 07:39] LABS: Hematocrit 31.6 % (42.0-52.0); Hemoglobin 10.6 g/dL (14.0-18.0)
[2023-02-19 13:02] VITALS: BP 110/67; TEMP 97.9
== END 2023-02-19 15:40 | DRG 521 ==
LOC: ERS 09:50 → SURG A 14:36
PROVIDERS: ADMIT Specialist; ATTEND Specialist
PROC: 30233J1 Transfusion of Nonautologous Serum Albumin into Peripheral Vein, Percutaneous Approach (ICD-10-PCS; 2023-02-16)
PROC: 0SRR0JZ Replacement of Right Hip Joint, Femoral Surface with Synthetic Substitute, Open Approach (ICD-10-PCS; principal; 2023-02-17)
DX: S72.001A Fracture of unspecified part of neck of right femur, initial encounter for closed fracture (principal); G93.41 Metabolic encephalopathy; M62.82 Rhabdomyolysis; E27.40 Unspecified adrenocortical insufficiency; I50.22 Chronic systolic (congestive) heart failure; W18.30XA Fall on same level, unspecified, initial encounter; S01.01XA Laceration without foreign body of scalp, initial encounter; Z79.82 Long term (current) use of aspirin; Z79.899 Other long term (current) drug therapy; Z95.1 Presence of aortocoronary bypass graft; Z98.890 Other specified postprocedural states; I11.0 Hypertensive heart disease with heart failure; I25.10 Atherosclerotic heart disease of native coronary artery without angina pectoris; I25.5 Ischemic cardiomyopathy
CPT/HCPCS: 0439T; 36415; 70450; 71045; 72125; 72170; 80048; 80053; 81001; 82533; 82550; 83605; 83735; 83880; 84484; 85014; 85018; 85025; 85610; 85730; 90471; 90715; 93005; 93306; 96374; 96375; C1713; C1776; G0390; J1100; J1720; J2001; J2405; J2704; J3010; J3490; P9045; S0028